=== PATIENT | female | born 1975 | race Caucasian/White ===

== ENCOUNTER 2022-06-21 12:36 | Emergency (ER) | payer OTHER, SELFPAY ==
[2022-06-21 12:41] VITALS: BP 142/89; PULSE 111; RESP 22; TEMP 36.6; O2SAT 98; BMI 48.9
--- NOTE | 2022-06-21 12:47 | DI.RAD.S_ITS ---
PROCEDURE: XR CHEST 2V INDICATIONS: URI TECHNIQUE: 2 views of the chest were acquired. COMPARISON: None. FINDINGS: Surgical changes and devices: None. Lungs and pleura: Question of minimal streaky opacity in the right lower lobe. No silhouetting. No pleural effusions or pneumothorax. Mediastinum: Mediastinal contours are normal. Heart size is normal. Bones and chest wall: No suspicious bony abnormalities. Soft tissues appear unremarkable. IMPRESSION: Questionable minimal streaky opacity in the right lower lobe. This could be seen in the setting of atelectasis or pneumonia Dictated by: Alphonse Jarvis M.D. on 06/21/2022 at 13:22 Approved by: Alphonse Jarvis M.D. on 06/21/2022 at 13:23
[2022-06-21 13:42] LABS: Influenza A - CEPHEID Flu A NEGATIVE (NEGATIVE); Influenza B - CEPHEID Flu B NEGATIVE (NEGATIVE); Respiratory Syncytial Virus Negative (Negative)
--- NOTE | 2022-06-21 13:49 | ED.GENADULT ---
HPI - General Adult General Chief complaint: Upper Respiratory Symptoms Stated complaint: fever 06/10 coughing, bladder, SOB Time Seen by Provider: 06/21/22 13:03 Source: patient Mode of arrival: Ambulatory History of Present Illness HPI narrative: 46-year-old female without prior underlying lung pathology who 18 days ago had COVID. Her last fever was approximately 10 days ago. She has persistent cough. It is productive. Body aches. Chest discomfort with the coughing. Shortness of breath. Has been trying [id number] medications. Is also having sinus congestion. Runny nose. Related Data Previous Rx's Medication Instructions Recorded benzonatate 100 mg capsule 100 mg PO TID PRN cough #21 caps 06/21/22 doxycycline hyclate 100 mg tablet 100 mg PO BID 5 days #10 tabs 06/21/22 Allergies Allergy/AdvReac Type Severity Reaction Status Date / Time erythromycin base Allergy Severe ANAPHYLAXIS Verified 06/21/22 12:46 [From ERYTHROCIN] Penicillins [PENICILLINS] Allergy Severe ANAPHYLAXIS Verified 06/21/22 12:46 Sulfa (Sulfonamide Allergy Severe ANAPHYLAXIS Verified 06/21/22 12:46 Antibiotics) [SULFA (SULFONAMIDE ANTIBIOTICS)] Review of Systems Constitutional Constitutional: Reports system reviewed and no additional complaints, except as documented ENT Ears, Nose, Mouth, and Throat: Reports system reviewed and no additional complaints, except as documented Respiratory Respiratory: Reports system reviewed and no additional complaints, except as documented Integumentary/Breasts Skin/Breast: Reports system reviewed and no additional complaints, except as documented Hematologic/Lymphatic On Anticoagulants: No Allergic/Immunologic Allergic/Immunologic: Reports system reviewed and no additional complaints, except as documented Patient History Medical History Abscess or cellulitis of thigh COVID-19 Left genital labial abscess Social History Smoking Status: Former smoker Smoking Status: Former smoker alcohol intake frequency: holidays/special occasions only Substance Use Type: marijuana Exam Initial Vital Signs Initial Vital Signs: Vital Signs Temperature 97.8 F 06/21/22 12:41 Pulse Rate 111 H 06/21/22 12:41 Respiratory Rate 22 06/21/22 12:41 Blood Pressure 142/89 H 06/21/22 12:41 Pulse Oximetry 98 06/21/22 12:41 Oxygen Delivery Method 06/21/22 12:41 Const General: cooperative, healthy appearing, comfortable, well developed and No ill appearing [facility] Head: normal to inspection and normocephalic Resp Effort & Inspection: normal respiratory effort Auscultation: clear to auscultation bilaterally Cardio Rate: regular rate Rhythm: regular rhythm Skin General: no rashes or lesions noted Neuro General: patient alert, patient awake, patient oriented x3 and moves all extremities Extrem General: normal to inspection and capillary refill normal Course Orders Ordered: ED Orders 06/21/22 12:47 XR chest 2V Stat 06/21/22 12:48 Covid-19 + FLU A/B + RSV - PCR Stat Vital Signs Vital signs: Vital Signs - 8 hr 06/21/22 12:41 Temperature 97.8 F Pulse Rate 111 H Respiratory Rate 22 Blood Pressure 142/89 H Pulse Oximetry 98 Oxygen Delivery Method Room Air Medical Decision Making Lab Data Lab results reviewed: Yes I reviewed the patient's lab results. Labs: Lab Results 06/21/22 Range/Units 12:48 SARS-CoV-2 (PCR) Positive H (Negative) Influenza A (RT-PCR) Flu a negative (NEGATIVE) Influenza B (RT-PCR) Flu b negative (NEGATIVE) RSV (PCR) Negative (Negative) Imaging Data Chest x-ray: Radiologist's Impression: [address] [address] XRay Report Signed Patient: Vandana Mckee MR#: [id number] : 1975 Acct:[id number] Age/Sex: 46 / F Date of Service: 06/21/22 Loc: ED Accession Number: [id number] ?? Procedure: XR chest 2V Ordering Provider: Esvin Aparicio D.O. PROCEDURE:? XR CHEST 2V ? INDICATIONS:? URI ? TECHNIQUE:? 2 views of the chest were acquired.? ? COMPARISON:? None. ? FINDINGS:? ? Surgical changes and devices:? None.? ? Lungs and pleura:? Question of minimal streaky opacity in the right lower lobe.? No silhouetting.? No pleural effusions or pneumothorax.? ? Mediastinum:? Mediastinal contours are normal.? Heart size is normal.? ? Bones and chest wall:? No suspicious bony abnormalities.? Soft tissues appear unremarkable.? ? IMPRESSION:? Questionable minimal streaky opacity in the right lower lobe.? This could be seen in the setting of atelectasis or pneumonia ? ? Dictated by: Alphonse Jarvis M.D. on 06/21/2022 at 13:22 ? ? Approved by: Alphonse Jarvis M.D. on 06/21/2022 at 13:23 MDM Narrative Medical decision making narrative: Patient is COVID positive. Chest x-ray shows possible right-sided pneumonia however she is a clear lung exam. Is not tachypneic but is having a productive cough. I discussed with her this chest x-ray finding and how this very well could just be COVID and not necessarily bacterial infection. She has had multiple issues with antibiotics in the past. Plan be is to send her home with medications to try to help with the cough. She was given a prescription for antibiotics but she will wait on filling this. She will try the antitussive medications and if her symptoms do not improve or worsen and she will start taking the antibiotics as directed. She expressed understanding and agreement with this plan. Discharge Plan Departure Patient Disposition: Home Clinical Impression: COVID-19, Cough Instructions: Cough, COVID-19 Activity Restrictions/Additional Instructions: I do recommend that he try [id number] cough and cold preparations such as Robitussin. Be sure that you are checking the ingredients of this so that you are not taking multiple medications that has the same ingredients. A prescription for a cough suppressant was sent to [facility] per your request. Keep the prescription for the antibiotics and if her symptoms do not improve or worsen over the next couple days then you can start this medication as directed. Prescriptions: New benzonatate 100 mg capsule 100 mg PO TID PRN (Reason: cough) Qty: 21 0RF doxycycline hyclate 100 mg tablet 100 mg PO BID 5 Days Qty: 10 0RF
[2022-06-21 14:03] LABS: COVID-19 CEPHEID 4-PLEX PCR POSITIVE (Negative)
[2022-06-21 14:36] VITALS: PULSE 99; RESP 18; O2SAT 100
== END 2022-06-21 14:36 | disposition home or self-care (01) ==
PROVIDERS: Emergency Provider Emergency Medicine
DX: U07.1 COVID-19 (principal); R05.9 Cough, unspecified
CPT/HCPCS: 0241U; 71046; 99283

== ENCOUNTER 2022-06-28 19:18 | Emergency (ER) | payer OTHER, SELFPAY ==
[2022-06-28] VITALS (7 sets, daily range): BP systolic 111–133; BP diastolic 59–76; PULSE 89–112; RESP 16–24; TEMP 36.9; O2SAT 96–99; BMI 49.5
--- NOTE | 2022-06-28 20:00 | DI.RAD.S_ITS ---
PROCEDURE: XR CHEST 2V INDICATIONS: cough TECHNIQUE: 2 views of the chest were acquired. COMPARISON: [facility], CR, XR CHEST 2V, 06/21/2022, 13:55. FINDINGS: Surgical changes and devices: None. Lungs and pleura: Lungs are clear. No pleural effusions or pneumothorax. Mediastinum: Mediastinal contours are normal. Heart size is normal. Bones and chest wall: No suspicious bony abnormalities. Soft tissues appear unremarkable. IMPRESSION: 1. No acute cardiopulmonary disease. Dictated by: Camilo Campos M.D. on 06/28/2022 at 20:59 Approved by: Camilo Campos M.D. on 06/28/2022 at 21:00
[2022-06-28 20:44] LABS: Influenza A - CEPHEID Flu A NEGATIVE (NEGATIVE); Influenza B - CEPHEID Flu B NEGATIVE (NEGATIVE); Respiratory Syncytial Virus Negative (Negative)
[2022-06-28 20:48] LABS: COVID-19 CEPHEID 4-PLEX PCR Negative (Negative)
--- NOTE | 2022-06-28 21:30 | ED.SOB ---
HPI - SOB/Dyspnea General Chief Complaint: Shortness of Breath/Dyspnea Stated Complaint: thinks pneumonia, cough Time Seen by Provider: 06/28/22 22:15 Source: patient Mode of arrival: Ambulatory Limitations: no limitations History of Present Illness HPI Narrative: 46-year-old female former smoker with history of recent COVID diagnosis and absent of any chronic medical problems presents with a chief complaint of ongoing shortness of breath and cough. She states that she feels these symptoms have been present for upwards of 1 month. She denies ongoing fever, runny nose or nasal congestion. She denies any sore throat but has had ongoing cough which is occasionally productive of greenish sputum. She denies any blood. She is short of breath with exertion but denies any orthopnea or conversational dyspnea. She denies nausea, vomiting or diarrhea. Related Data Previous Rx's Medication Instructions Recorded benzonatate 100 mg capsule 100 mg PO TID PRN cough #21 caps 06/21/22 doxycycline hyclate 100 mg tablet 100 mg PO BID #20 tabs 06/29/22 Allergies Allergy/AdvReac Type Severity Reaction Status Date / Time erythromycin base Allergy Severe ANAPHYLAXIS Verified 06/28/22 20:13 [From ERYTHROCIN] Penicillins [PENICILLINS] Allergy Severe ANAPHYLAXIS Verified 06/28/22 20:13 Sulfa (Sulfonamide Allergy Severe ANAPHYLAXIS Verified 06/28/22 20:13 Antibiotics) [SULFA (SULFONAMIDE ANTIBIOTICS)] Review of Systems Review of Systems Narrative: GENERAL: See HPI HEENT: See HPI RESPIRATORY: See HPI CARDIOVASCULAR: See HPI GASTROINTESTINAL: Denies nausea, vomiting, abdominal pain, diarrhea, constipation, melena. : Denies dysuria, frequency, incontinence, hematuria, urinary retention. MUSCULOSKELETAL: denies weakness, joint pain, or bony pain SKIN: Denies rash, skin lesions, or other NEUROLOGIC: Denies weakness, headache, numbness, change in speech, confusion, seizures, incoordination. PSYCHIATRIC: No concerning psychosocial issues. 12 point review of systems is negative except for those stated above Patient History Medical History Abscess or cellulitis of thigh COVID-19 Left genital labial abscess Social History Smoking Status: Former smoker Smoking Status: Former smoker alcohol intake frequency: holidays/special occasions only Substance Use Type: marijuana Exam Narrative Exam Narrative: GENERAL: [46] year old patient appears stated age. Well-developed patient, in mild distress. HEAD: Atraumatic. Normocephalic. EYES: Pupils equal round and reactive. Extraocular motions intact. No scleral icterus. No injection or drainage. ENT: Nose without bleeding, purulent drainage. Throat without erythema, tonsillar hypertrophy or exudate. Airway patent. NECK: Trachea midline. Non tender CARDIOVASCULAR: Regular rate and rhythm without murmurs, gallops, or rubs. RESPIRATORY: Clear to auscultation. Breath sounds equal bilaterally. No wheezes, rales, or rhonchi. Deep breath seems to elicit cough GASTROINTESTINAL: Abdomen soft, non-tender, nondistended. EXTREMITIES: No edema or joint tenderness. BACK: Nontender without deformity or crepitance. No flank tenderness. NEURO: AOx3. SKIN: No rash or erythema of visible areas Initial Vital Signs Initial Vital Signs: Vital Signs Temperature 98.5 F 06/28/22 19:51 Pulse Rate 112 H 06/28/22 19:51 Respiratory Rate 24 06/28/22 19:51 Blood Pressure 133/76 06/28/22 19:51 Pulse Oximetry 99 06/28/22 19:51 Oxygen Delivery Method 06/28/22 19:51 Course Orders Ordered: Discontinued Medications Albuterol (Albuterol Hfa Prepack) 1 box MISC SEEINSTR ONE Stop: 06/29/22 02:41 Last Admin: 06/29/22 02:50 Dose: 1 box Documented By: MAGGY Doxycycline Hyclate (Doxycycline Hyclate 100 Mg Tablet) 100 mg PO NOW ONE Stop: 06/29/22 02:40 Last Admin: 06/29/22 02:52 Dose: 100 mg Documented By: LISHA Sodium Chloride (Normal Saline 0.9%) 1,000 mls @ 1,000 mls/hr IV BOLUS ONE Stop: 06/28/22 22:18 Last Infusion: 06/29/22 00:11 Dose: 0 mls/hr Documented By: Admin: 06/28/22 21:39 Dose: 1,000 mls/hr Documented By: TERRANCE Vital Signs Vital signs: Vital Signs - 8 hr 06/28/22 19:51 06/28/22 21:49 06/28/22 22:00 Temperature 98.5 F Pulse Rate 112 H 93 H Respiratory Rate 24 Blood Pressure 133/76 130/75 Pulse Oximetry 99 97 Oxygen Delivery Method Room Air 06/28/22 22:00 06/28/22 22:30 06/28/22 22:30 Temperature Pulse Rate 97 H 90 Respiratory Rate 16 Blood Pressure 115/59 L Pulse Oximetry 96 97 Oxygen Delivery Method Room Air 06/28/22 23:00 06/28/22 23:00 06/28/22 23:32 Temperature Pulse Rate 89 Respiratory Rate Blood Pressure 119/71 Pulse Oximetry 98 98 Oxygen Delivery Method 06/28/22 23:33 06/28/22 23:33 06/29/22 00:00 Temperature Pulse Rate 93 H Respiratory Rate Blood Pressure 111/65 107/59 L Pulse Oximetry 97 Oxygen Delivery Method 06/29/22 00:00 06/29/22 00:30 06/29/22 00:30 Temperature Pulse Rate 93 H 94 H Respiratory Rate Blood Pressure 108/57 L Pulse Oximetry 97 97 Oxygen Delivery Method 06/29/22 01:00 06/29/22 01:00 06/29/22 01:39 Temperature Pulse Rate 91 H 103 H Respiratory Rate Blood Pressure 107/59 L Pulse Oximetry 96 97 Oxygen Delivery Method 06/29/22 02:00 Temperature Pulse Rate 87 Respiratory Rate Blood Pressure Pulse Oximetry 95 Oxygen Delivery Method MDM - SOB/Dyspnea Lab Data Result diagrams: 06/28/22 21:30 06/28/22 21:30 Labs: Lab Results 06/28/22 06/28/22 06/28/22 Range/Units 20:00 21:30 21:30 WBC 9.7 (4.5-11.0) X10^3/uL RBC 4.54 (4.0-5.2) X10^6/uL Hgb 10.2 L (12.0-16.0) g/dL Hct 32.3 L (36-46) % MCV 71.2 L (80-100) fL MCH 22.5 L (26-34) PG MCHC 31.6 (30-36) % RDW 18.1 H (11.6-14.8) % Plt Count 309 (150-400) X10^3/uL Neut % (Auto) 60.0 (50-75) % Lymph % (Auto) 27.2 (25-40) % [place] % (Auto) 6.4 (3-14) % Eos % (Auto) 5.5 H (2-4) % Baso % (Auto) 0.9 (0-2) % Neut # (Auto) 5800 (8301-8071) /uL Lymph # (Auto) 2600 (7968-7718) /uL [place] # (Auto) 600 (0-900) /uL Eos # (Auto) 500 H (0-450) /uL Baso # (Auto) 100 (0-100) /uL D-Dimer (<500) ng/ml Sodium (137-145) mmol/L Potassium (3.4-5.1) mmol/L Chloride (98-107) mmol/L Carbon Dioxide (22-32) mmol/L BUN (7-17) mg/dL Creatinine (0.52-1.04) mg/dL Estimated GFR (>60) mL/min BUN/Creatinine Ratio (6-22) Glucose (70-100) mg/dL Lactate (0.7-2.1) mmol/L Calcium (8.4-10.2) mg/dL Total Bilirubin (0.2-1.3) mg/dL AST (14-36) IU/L ALT (<35) IU/L Alkaline Phosphatase (38-126) U/L Total Creatine Kinase (30-135) U/L CK-MB (CK-2) (<2.37) ng/mL CK-MB (CK-2) Rel Index (1.5-5.0) % Troponin I (0.01-0.034) ng/mL NT-Pro-B Natriuret Pep (<125) pg/mL Total Protein (6.3-8.2) g/dL Albumin (3.5-5.0) g/dL Globulin (1.7-4.1) g/dL Albumin/Globulin Ratio (1.0-2.8) Procalcitonin 0.08 (<0.5) ng/mL SARS-CoV-2 (PCR) Negative (Negative) Influenza A (RT-PCR) Flu a negative (NEGATIVE) Influenza B (RT-PCR) Flu b negative (NEGATIVE) RSV (PCR) Negative (Negative) 12/05/22 12/05/22 12/05/22 Range/Units 21:30 21:30 21:30 WBC (4.5-11.0) X10^3/uL RBC (4.0-5.2) X10^6/uL Hgb (12.0-16.0) g/dL Hct (36-46) % MCV (80-100) fL MCH (26-34) PG MCHC (30-36) % RDW (11.6-14.8) % Plt Count (150-400) X10^3/uL Neut % (Auto) (50-75) % Lymph % (Auto) (25-40) % [place] % (Auto) (3-14) % Eos % (Auto) (2-4) % Baso % (Auto) (0-2) % Neut # (Auto) (1750-9162) /uL Lymph # (Auto) (4059-4881) /uL [place] # (Auto) (0-900) /uL Eos # (Auto) (0-450) /uL Baso # (Auto) (0-100) /uL D-Dimer 658 H (<500) ng/ml Sodium 139 (137-145) mmol/L Potassium 3.9 (3.4-5.1) mmol/L Chloride 104 (98-107) mmol/L Carbon Dioxide 27 (22-32) mmol/L BUN 14 (7-17) mg/dL Creatinine 0.82 (0.52-1.04) mg/dL Estimated GFR > 60 (>60) mL/min BUN/Creatinine Ratio 17.1 (6-22) Glucose 100 (70-100) mg/dL Lactate 1.1 (0.7-2.1) mmol/L Calcium 8.6 (8.4-10.2) mg/dL Total Bilirubin 0.3 (0.2-1.3) mg/dL AST 24 (14-36) IU/L ALT 18 (<35) IU/L Alkaline Phosphatase 88 (38-126) U/L Total Creatine Kinase 252 H (30-135) U/L CK-MB (CK-2) 0.60 (<2.37) ng/mL CK-MB (CK-2) Rel Index 0.2 L (1.5-5.0) % Troponin I < 0.012 (0.01-0.034) ng/mL NT-Pro-B Natriuret Pep 81 (<125) pg/mL Total Protein 7.6 (6.3-8.2) g/dL Albumin 4.0 (3.5-5.0) g/dL Globulin 3.6 (1.7-4.1) g/dL Albumin/Globulin Ratio 1.1 (1.0-2.8) Procalcitonin (<0.5) ng/mL SARS-CoV-2 (PCR) (Negative) Influenza A (RT-PCR) (NEGATIVE) Influenza B (RT-PCR) (NEGATIVE) RSV (PCR) (Negative) Urine Dip Bedside Urine Glucose Negative Bedside Urine Bilirubin - Negative Bedside Urine Ketone - Negative Urine Specific [place] 1.030 Bedside Urine Occult Blood - Negative Bedside Urine pH 6.0 Bedside Urine Protein - Negative Bedside Urine Urobilinogen - Negative Bedside Urine Nitrite - Negative Bedside Urine Leukocytes - Negative Esterase Imaging Data CT scan - chest: Radiologist's Impression: Close Chest CTA (Signed) Camilo Campos - 06/29/22 Chest X-Ray (Signed) Camilo Campos - 06/28/22 Launch?[place] [address] CT Scan Report Signed Patient: Vandana Mckee MR#: [id number] : 1975 Acct:[id number] Age/Sex: 46 / F Date of Service: 06/29/22 Loc: Accession Number: [id number] ?? Procedure: CT angio chest PE protocol Ordering Provider: Jamarcus Lipscomb D.O. PROCEDURE:? CT ANGIO CHEST PE PROTOCOL ? INDICATIONS:? cough, SOB, elevated Dimer ? TECHNIQUE:? After the administration of intravenous contrast, 2 mm thick sections acquired from the pulmonary apices to the posterior costophrenic angles.? 3-dimensional maximum intensity projection (MIP) coronal and sagittal reformats were then acquired through the thorax.? For radiation dose reduction, the following was used:? automated exposure control, adjustment of mA and/or kV according to patient size.? ? COMPARISON:? [facility], CR, XR CHEST 2V, 06/28/2022, 20:13. ? FINDINGS:? Image quality:? Excellent.? ? Pulmonary arteries:? Pulmonary arteries are normal in size, and demonstrate no intraluminal filling defects to suggest central pulmonary embolism.? ? Lower Neck: No lymphadenopathy by size criteria. Thyroid:? Visualized thyroid demonstrates no discrete nodules. Axillae: No lymphadenopathy by size criteria. Chest Wall:? Unremarkable.? Bones: Visualized osseous structures demonstrate no suspicious lesions. ? Lungs and Airways:? No acute consolidation.? There are small clustered ground-glass pulmonary nodules within the left upper lobe.? The trachea and central airways are patent. Pleura: No pneumothorax or pleural effusions.? ? Heart: Heart size is normal.? No pericardial effusion. Thoracic Vessels: The thoracic aorta is normal in size.? Mediastinum and Savi: No lymphadenopathy by size criteria. Esophagus: No wall thickening.? There is a small hiatal hernia. ? Abdomen:? Visualized upper abdominal solid organs appear normal in the early arterial phase of enhancement.? ? IMPRESSION:? ? 1. No evidence of pulmonary embolism. ? 2. Small clustered ground-glass nodules in the left upper lobe consistent with a mild infectious or inflammatory process.? ? ? Dictated by: Camilo Campos M.D. on 06/29/2022 at 2:07 ? ? Approved by: Camilo Campos M.D. on 06/29/2022 at 2:27 ? MDM Narrative Medical decision making narrative: 46-year-old female former smoker with history of recent COVID diagnosis and absent of any chronic medical problems presents with a chief complaint of ongoing shortness of breath and cough Multiple etiologies for patient's symptoms considered including: [Bacterial pneumonia, COVID, Flu, PE] Given persistence of dry cough, occasional hemoptysis and recent COVID D-dimer was ordered which was above the cutoff and therefore CTA for pulmonary embolism ordered which is thankfully negative, but suggestive of bacterial pneumonia Patient's symptoms improved over duration of stay with above-stated therapies. Findings and discharge diagnosis discussed with patient/family followed by verbalization of understanding Return precautions discussed with patient/family whom verbalize understanding. Discharge Plan Departure Patient Disposition: Home Clinical Impression: Pneumonia Instructions: DI for Pneumonia -- Adult Activity Restrictions/Additional Instructions: *You have been diagnosed with [left upper lobe pneumonia. As we discussed there is no evidence of COVID, flu or a blood clot in your lung.] *What to do: *Please continue to take your regular medications as directed. [x ] New medication prescriptions sent to your pharmacy: [[facility] ] [ ] New medication written as a paper prescription [ ] No new medications given *Please follow up with your primary care provider in 2-3 days, call for an appointment. Let them know you were seen in the Emergency Department and that we ask that you be seen in follow up. We will electronically transmit a record of today's note if your PCP is in our system *If you do not have a primary care provider please contact the [facility] Resource line at [phone]. They will ask some questions about your medical history and help get you set up with a doctor in the community. *Return to Emergency Department if you should have any new, worsening or concerning symptoms, such as [fever greater than 101 F, shaking chills, worsening pain, persistent vomiting or other bothersome symptoms] Prescriptions: New doxycycline hyclate 100 mg tablet 100 mg PO BID Qty: 20 0RF No Action benzonatate 100 mg capsule 100 mg PO TID PRN (Reason: cough) Qty: 21 0RF Referrals: [facility] [Primary Care Provider] - Visit Report Forms: Patient Portal/API
[2022-06-28] MEDS: SODIUM CHLORIDE 0.9% 1,000 ML 1000 ML IV (21:39)
[2022-06-28 21:45] LABS: Add Manual Diff / Slide Review NO; Basophils Absolute Auto 100 /uL (0-100); Basophils Percent Auto 0.9 % (0-2); Eosinophils Absolute Auto 500 /uL (0-450); Eosinophils Percent Auto 5.5 % (2-4); Hematocrit 32.3 % (36-46); Hemoglobin 10.2 g/dL (12.0-16.0); Lymphocytes Absolute Auto 2600 /uL (1100-4500); Lymphocytes Percent Auto 27.2 % (25-40); Mean Corpuscular HGB Conc 31.6 % (30-36); Mean Corpuscular Hemoglobin 22.5 PG (26-34); Mean Corpuscular Volume 71.2 fL (80-100); Monocytes Absolute Auto 600 /uL (0-900); Monocytes Percent Auto 6.4 % (3-14); Neutrophils Absolute Auto 5800 /uL (1500-7000); Platelet Count 309 X10^3/uL (150-400); Red Blood Cell Count 4.54 X10^6/uL (4.0-5.2); Red Cell Distribution Width 18.1 % (11.6-14.8); White Blood Cell Count 9.7 X10^3/uL (4.5-11.0)
[2022-06-28 21:52] LABS: Lactate (Lactic Acid) 1.1 mmol/L (0.7-2.1)
[2022-06-28 21:53] LABS: Alanine Aminotransferase 18 IU/L (<35); Albumin Globulin Ratio 1.1 (1.0-2.8); Alkaline Phosphatase 88 U/L (38-126); Aspartate Aminotransferase 24 IU/L (14-36); BUN Creatinine Ratio 17.1 (6-22); Bilirubin Total 0.3 mg/dL (0.2-1.3); Blood Urea Nitrogen 14 mg/dL (7-17); Calcium 8.6 mg/dL (8.4-10.2); Carbon Dioxide 27 mmol/L (22-32); Chloride 104 mmol/L (98-107); Creatine Kinase 252 U/L (30-135); Estimated Glomerular Filt Rate > 60 mL/min (>60); Globulin 3.6 g/dL (1.7-4.1); Glucose 100 mg/dL (70-100); HEMOLYSIS < 15 (0-50); Potassium 3.9 mmol/L (3.4-5.1); Sodium 139 mmol/L (137-145); Total Protein 7.6 g/dL (6.3-8.2)
[2022-06-28 22:05] LABS: NT-proBNP (BNP-Adult 18+) 81 pg/mL (<125); Troponin I < 0.012 ng/mL (0.01-0.034)
[2022-06-28 22:08] LABS: CKMB % Relative Index 0.2 % (1.5-5.0)
[2022-06-28 22:21] LABS: Procalcitonin 0.08 ng/mL (<0.5)
[2022-06-28 23:31] LABS: D Dimer 658 ng/ml (<500)
[2022-06-29] VITALS (7 sets, daily range): BP systolic 107–119; BP diastolic 57–82; PULSE 84–103; O2SAT 94–97
--- NOTE | 2022-06-29 01:15 | DI.CT.S_ITS ---
PROCEDURE: CT ANGIO CHEST PE PROTOCOL INDICATIONS: cough, SOB, elevated Dimer TECHNIQUE: After the administration of intravenous contrast, 2 mm thick sections acquired from the pulmonary apices to the posterior costophrenic angles. 3-dimensional maximum intensity projection (MIP) coronal and sagittal reformats were then acquired through the thorax. For radiation dose reduction, the following was used: automated exposure control, adjustment of mA and/or kV according to patient size. COMPARISON: [facility], CR, XR CHEST 2V, 06/28/2022, 20:13. FINDINGS: Image quality: Excellent. Pulmonary arteries: Pulmonary arteries are normal in size, and demonstrate no intraluminal filling defects to suggest central pulmonary embolism. Lower Neck: No lymphadenopathy by size criteria. Thyroid: Visualized thyroid demonstrates no discrete nodules. Axillae: No lymphadenopathy by size criteria. Chest Wall: Unremarkable. Bones: Visualized osseous structures demonstrate no suspicious lesions. Lungs and Airways: No acute consolidation. There are small clustered ground-glass pulmonary nodules within the left upper lobe. The trachea and central airways are patent. Pleura: No pneumothorax or pleural effusions. Heart: Heart size is normal. No pericardial effusion. Thoracic Vessels: The thoracic aorta is normal in size. Mediastinum and Savi: No lymphadenopathy by size criteria. Esophagus: No wall thickening. There is a small hiatal hernia. Abdomen: Visualized upper abdominal solid organs appear normal in the early arterial phase of enhancement. IMPRESSION: 1. No evidence of pulmonary embolism. 2. Small clustered ground-glass nodules in the left upper lobe consistent with a mild infectious or inflammatory process. Dictated by: Camilo Campos M.D. on 06/29/2022 at 2:07 Approved by: Camilo Campos M.D. on 06/29/2022 at 2:27
[2022-06-29] MEDS: ALBUTEROL HFA PREPACK 1 BOX MISC (02:50)
[2022-06-29] MEDS: DOXYCYCLINE HYCLATE 100 MG TABLET PO (02:52)
== END 2022-06-29 02:58 | disposition home or self-care (01) ==
PROVIDERS: Emergency Provider Emergency Medicine
DX: J18.9 Pneumonia, unspecified organism (principal); Z20.822 Contact with and (suspected) exposure to COVID-19; R79.89 Other specified abnormal findings of blood chemistry
CPT/HCPCS: 0241U; 36415; 71046; 71275; 80053; 81003; 82550; 82553; 83605; 83880; 84145; 84484; 85025; 85379; 87040; 93005; 93010; 99284; 99285; Q9967

== ENCOUNTER 2023-06-10 18:29 | Emergency (ER) | payer OTHER, SELFPAY ==
[2023-06-10 18:31] VITALS: PULSE 88; RESP 18; TEMP 36.4; O2SAT 100; BMI 46.3
--- NOTE | 2023-06-10 18:35 | DI.RAD.S_ITS ---
PROCEDURE: XR CHEST 1V INDICATIONS: chest pain TECHNIQUE: One view of the chest was acquired. COMPARISON: [facility], CR, XR CHEST 2V, 06/28/2022, 20:13. FINDINGS: Surgical changes and devices: None. Lungs and pleura: Lungs are clear. No pleural effusions or pneumothorax. Mediastinum: Mediastinal contours appear normal. Heart size is normal. Bones and chest wall: No suspicious bony lesions. Overlying soft tissues appear unremarkable. IMPRESSION: Portable chest within normal limits for age. Dictated by: Cathy Selby M.D. on 06/10/2023 at 19:25 Approved by: Cathy Selby M.D. on 06/10/2023 at 19:25
[2023-06-10] MEDS: ASPIRIN 81 MG CHEW TAB 324 MG PO (18:37)
--- NOTE | 2023-06-10 18:44 | PC.NURSE ---
unable to float IV in. Able to get blood removed IV cath
[2023-06-10 18:57] LABS: Add Manual Diff / Slide Review NO; Basophils Absolute Auto 100 /uL (0-100); Basophils Percent Auto 0.9 % (0-2); Eosinophils Absolute Auto 200 /uL (0-450); Eosinophils Percent Auto 2.2 % (2-4); Hematocrit 37.3 % (36-46); Hemoglobin 12.4 g/dL (12.0-16.0); Lymphocytes Absolute Auto 2000 /uL (1100-4500); Lymphocytes Percent Auto 23.5 % (25-40); Mean Corpuscular HGB Conc 33.2 % (30-36); Mean Corpuscular Volume 78.2 fL (80-100); Monocytes Absolute Auto 400 /uL (0-900); Monocytes Percent Auto 5.3 % (3-14); Neutrophils Absolute Auto 5800 /uL (1500-7000); Neutrophils Percent Auto 68.1 % (50-75); Platelet Count 264 X10^3/uL (150-400); Red Blood Cell Count 4.77 X10^6/uL (4.0-5.2); Red Cell Distribution Width 20.6 % (11.6-14.8); White Blood Cell Count 8.5 X10^3/uL (4.5-11.0)
[2023-06-10 18:59] LABS: PTT Partial Thromboplastin Tim 26 SECONDS (26-36)
[2023-06-10 19:00] LABS: Alanine Aminotransferase 22 IU/L (<35); Albumin 3.9 g/dL (3.5-5.0); Albumin Globulin Ratio 1.1 (1.0-2.8); Alkaline Phosphatase 72 U/L (38-126); Aspartate Aminotransferase 29 IU/L (14-36); Bilirubin Total 0.6 mg/dL (0.2-1.3); Blood Urea Nitrogen 14 mg/dL (7-17); Calcium 9.1 mg/dL (8.4-10.2); Carbon Dioxide 27 mmol/L (22-32); Chloride 103 mmol/L (98-107); Creatine Kinase 94 U/L (30-135); Estimated Glomerular Filt Rate > 60 mL/min (>60); Globulin 3.6 g/dL (1.7-4.1); Glucose 108 mg/dL (70-100); HEMOLYSIS 32 (0-50); Lipase 60 U/L (23-300); Magnesium 2.1 mg/dL (1.6-2.3); Potassium 3.9 mmol/L (3.4-5.1); Sodium 137 mmol/L (137-145); Total Protein 7.5 g/dL (6.3-8.2)
[2023-06-10 19:11] LABS: Troponin I < 0.012 ng/mL (0.01-0.034)
[2023-06-10 19:25] LABS: Anisocytosis 1+
--- NOTE | 2023-06-10 19:58 | ED_ITS ---
HPI - Chest Pain General Chief Complaint: Chest Pain Stated Complaint: chest pains all day Time Seen by Provider: 06/10/23 19:58 History of Present Illness HPI narrative: Patient comes to the ED tonight with chest pain most of the day today. Pain is in the left upper chest radiating to the shoulder a bit she is some numbness and tingling at times. It is definitely worse with movement. No nausea vomiting or diarrhea. No fever no cough no sweats or breathlessness or nausea associated with this pain. No history of coronary disease. She does have obesity. She does not smoke cigarettes. No early family history of coronary disease. She does not take cholesterol medication. She does have underlying asthma. No history of thromboembolic disease. No estrogen therapy. No hemoptysis. No cancer history. No exogenous estrogens. Related Data Previous Rx's Medication Instructions Recorded benzonatate 100 mg capsule 100 mg PO TID PRN cough #21 caps 06/21/22 doxycycline hyclate 100 mg tablet 100 mg PO BID #20 tabs 06/29/22 Allergies Allergy/AdvReac Type Severity Reaction Status Date / Time erythromycin base Allergy Severe ANAPHYLAXIS Verified 06/10/23 18:35 [From ERYTHROCIN] Penicillins [PENICILLINS] Allergy Severe ANAPHYLAXIS Verified 06/10/23 18:35 Sulfa (Sulfonamide Allergy Severe ANAPHYLAXIS Verified 06/10/23 18:35 Antibiotics) [SULFA (SULFONAMIDE ANTIBIOTICS)] Patient History Medical History Abscess or cellulitis of thigh COVID-19 Left genital labial abscess Social History Smoking Status: Former smoker Smoking Status: Former smoker alcohol intake frequency: holidays/special occasions only Substance Use Type: marijuana Exam Narrative Exam Narrative: GENERAL: Alert, cooperative and in no distress. HEAD: Atraumatic. Normocephalic. EYES: Sclera are clear without icterus. Extraocular movements are full. ENT: No rhinorrhea. Oropharynx is moist. Mouth exam is benign. NECK: Supple. Full range of motion. CARDIOVASCULAR: Normal rate and rhythm without murmur gallop or rub. Clear-cut reproducible left upper chest pain to palpation RESPIRATORY: Clear to auscultation. Breath sounds equal bilaterally. No wheezes, rales, or rhonchi. GASTROINTESTINAL: Abdomen soft, non-tender, nondistended. EXTREMITIES: No edema, full range of motion. No obvious trauma. BACK: Normal inspection, no CVA tenderness. NEURO: Nonfocal examination, normal speech, normal gait. SKIN: No rash or erythema of visible areas PSYCH: Normally oriented. Normal range of affect. Appropriate behavior Initial Vital Signs Initial Vital Signs: Vital Signs Temperature 97.6 F 06/10/23 18:31 Pulse Rate 88 06/10/23 18:31 Respiratory Rate 18 06/10/23 18:31 Pulse Oximetry 100 06/10/23 18:31 Oxygen Delivery Method Room Air 06/10/23 18:31 Scores HEART Score Heart Score history: Slightly Suspicious Heart Score EKG: Normal Heart Score Age: 45-64 years old Heart Score risk factors: 1-2 risk factors Heart Score troponin: < or = to normal limit Heart Score Total: 2 PERC Score Age greater than or equal to 50 years: No Heart rate greater than or equal to 100 bpm: No Room Air O2 Sat less than 95%: No Unilateral leg swelling: No Recent trauma or surgery: No Hemoptysis: No Prior PE or DVT: No Hormone Use: No Total PERC Score: 0 Course Orders Ordered: ED Orders 06/10/23 18:35 XR chest 1V Stat 06/10/23 18:42 Complete Blood Count AUTO DIFF Stat Comprehensive Metabolic Panel Stat Lipase Stat Magnesium Stat PTT Partial Thromboplastin Izaiah Stat Prothrombin Time INR Stat Troponin & CK Cardiac Panel Stat 06/10/23 18:46 EKG-12 Lead Stat Discontinued Medications Aspirin (Aspirin 81 Mg Chew Tab) 324 mg PO NOW ONE Stop: 06/10/23 18:36 Last Admin: 06/10/23 18:37 Dose: 324 mg Documented By: JOSE Vital Signs Vital signs: Vital Signs - 8 hr 06/10/23 18:31 Temperature 97.6 F Pulse Rate 88 Respiratory Rate 18 Pulse Oximetry 100 Oxygen Delivery Method Room Air MDM - Chest Pain Lab Data 06/10/23 18:42 06/10/23 18:42 Labs: Lab Results 06/10/23 Range/Units 18:42 WBC 8.5 (4.5-11.0) X10^3/uL RBC 4.77 (4.0-5.2) X10^6/uL Hgb 12.4 (12.0-16.0) g/dL Hct 37.3 (36-46) % MCV 78.2 L (80-100) fL MCH 26.0 (26-34) PG MCHC 33.2 (30-36) % RDW 20.6 H (11.6-14.8) % Plt Count 264 (150-400) X10^3/uL Neut % (Auto) 68.1 (50-75) % Lymph % (Auto) 23.5 L (25-40) % [place] % (Auto) 5.3 (3-14) % Eos % (Auto) 2.2 (2-4) % Baso % (Auto) 0.9 (0-2) % Neut # (Auto) 5800 (6305-7427) /uL Lymph # (Auto) 2000 (1690-2478) /uL [place] # (Auto) 400 (0-900) /uL Eos # (Auto) 200 (0-450) /uL Baso # (Auto) 100 (0-100) /uL RBC Morphology See below Anisocytosis 1+ H PT 12.0 (10.1-12.7) SECONDS INR 1.0 (0.9-1.3) APTT 26 (26-36) SECONDS Sodium 137 (137-145) mmol/L Potassium 3.9 (3.4-5.1) mmol/L Chloride 103 (98-107) mmol/L Carbon Dioxide 27 (22-32) mmol/L BUN 14 (7-17) mg/dL Creatinine 0.70 (0.52-1.04) mg/dL Estimated GFR > 60 (>60) mL/min BUN/Creatinine Ratio 20.0 (6-22) Glucose 108 H (70-100) mg/dL Calcium 9.1 (8.4-10.2) mg/dL Magnesium 2.1 (1.6-2.3) mg/dL Total Bilirubin 0.6 (0.2-1.3) mg/dL AST 29 (14-36) IU/L ALT 22 (<35) IU/L Alkaline Phosphatase 72 (38-126) U/L Total Creatine Kinase 94 (30-135) U/L Troponin I < 0.012 (0.01-0.034) ng/mL Total Protein 7.5 (6.3-8.2) g/dL Albumin 3.9 (3.5-5.0) g/dL Globulin 3.6 (1.7-4.1) g/dL Albumin/Globulin Ratio 1.1 (1.0-2.8) Lipase 60 (23-300) U/L ECG Data Interpretation: ECG obtained at 6:46 p.m. shows sinus rhythm at 79 beats per minute. QTC is 467. This ECG is normal. MDM Narrative Medical decision making narrative: Heart score of 2. Perc negative. ECG normal. Reproducible musculoskeletal pain. No further workup indicated at this time. Outpatient follow-up with symptomatic therapies. Discharge Plan Departure Patient Disposition: Home Clinical Impression: Chest pain Instructions: DI for Chest Pain Activity Restrictions/Additional Instructions: No immediately dangerous cause for your chest pain is identified. I recommend outpatient follow-up with your primary care doctor to discuss further investigation is warranted. Follow-up right away for fainting, severe uncontrolled pain especially if it is associated with breathlessness. High fever or other severe symptoms. Your chest pain may end up being something of consequence and serious but no evidence of this at this time. I recommend outpatient follow-up to investigate this more thoroughly. In the meantime Tylenol 1000 mg every 6 hours combined with an NSAID regularly should help with the pain to some degree. Ice packs or heat packs are safe to use as well. Prescriptions: No Action benzonatate 100 mg capsule 100 mg PO TID PRN (Reason: cough) Qty: 21 0RF doxycycline hyclate 100 mg tablet 100 mg PO BID Qty: 20 0RF Referrals: [facility] [Primary Care Provider] - Stand Alone Forms: Patient Portal/API
[2023-06-10 20:28] VITALS: BP 136/82; PULSE 71; RESP 16; O2SAT 99
== END 2023-06-10 20:29 | disposition home or self-care (01) ==
PROVIDERS: Emergency Provider Family Medicine Addiction Medicine
DX: R07.9 Chest pain, unspecified (principal)
CPT/HCPCS: 36415; 71045; 80053; 82550; 83690; 83735; 84484; 85025; 85610; 85730; 93005; 93010; 99283; 99284

== ENCOUNTER → 2024-03-15 09:38 | Outpatient (CLI) | payer OTHER, SELFPAY ==
--- NOTE | 2024-03-15 10:10 | EKG_ITS ---
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
[2024-03-15 11:01] LABS: Add Manual Diff / Slide Review NO; Basophils Absolute Auto 0 /uL (0-100); Basophils Percent Auto 0.5 % (0-2); Eosinophils Absolute Auto 100 /uL (0-450); Eosinophils Percent Auto 1.4 % (2-4); Hematocrit 36.8 % (36-46); Hemoglobin 12.1 g/dL (12.0-16.0); Lymphocytes Absolute Auto 1800 /uL (1100-4500); Mean Corpuscular Volume 81.9 fL (80-100); Monocytes Absolute Auto 600 /uL (0-900); Monocytes Percent Auto 6.6 % (3-14); Neutrophils Absolute Auto 6200 /uL (1500-7000); Neutrophils Percent Auto 70.5 % (50-75); Platelet Count 299 X10^3/uL (150-400); Red Cell Distribution Width 14.7 % (11.6-14.8); White Blood Cell Count 8.7 X10^3/uL (4.5-11.0)
[2024-03-15 11:50] LABS: Albumin 4.1 g/dL (3.5-5.0); BUN Creatinine Ratio 13.3 (6-22); Blood Urea Nitrogen 11 mg/dL (7-17); Calcium 9.1 mg/dL (8.4-10.2); Carbon Dioxide 27 mmol/L (22-32); Chloride 102 mmol/L (98-107); Estimated Glomerular Filt Rate > 60 mL/min (>60); Glucose 94 mg/dL (70-100); HEMOLYSIS < 15 (0-50); Potassium 4.2 mmol/L (3.4-5.1); Sodium 138 mmol/L (137-145)
[2024-03-15 11:58] LABS: Prealbumin 23.5 mg/dL (17.6-36.0)
[2024-03-15 12:05] LABS: Hemoglobin A1C% w Est Avg Glu 4.9 % (4.0-6.0)
[2024-03-15 14:44] LABS: Vitamin D 25 Hydroxy (D3) 30.4 ng/mL (30.0-100.0)
== END ==
PROVIDERS: Referring Provider Orthopaedic Surgery Adult Reconstructive Orthopaedic Surgery; Visit Provider Orthopaedic Surgery Adult Reconstructive Orthopaedic Surgery
DX: Z01.818 Encounter for other preprocedural examination (principal); R77.0 Abnormality of albumin; E55.9 Vitamin D deficiency, unspecified; Z01.812 Encounter for preprocedural laboratory examination; R73.9 Hyperglycemia, unspecified
CPT/HCPCS: 36415; 80048; 82040; 82306; 83036; 84134; 85025; 93005

== ENCOUNTER 2024-06-15 08:44 | Day surgery (SDC) | payer OTHER, SELFPAY ==
[2024-06-05 09:36] VITALS: BMI 47.2
[2024-06-15] VITALS (10 sets, daily range): BP systolic 105–129; BP diastolic 42–77; PULSE 80–98; RESP 11–22; TEMP 35.8–36.7; O2SAT 98–100; BMI 46.3
[2024-06-15] MEDS: LACTATED RINGERS 1,000 ML 42 ML IV ×2 (09:43→12:31)
[2024-06-15] MEDS: ACETAMINOPHEN 325 MG TABLET 975 MG PO (09:43)
[2024-06-15] MEDS: MELOXICAM 7.5 MG TABLET 15 MG PO (09:43)
--- NOTE | 2024-06-15 10:04 | PM.PREOP ---
Pre-operative Note Interval Note History & Physical reviewed/Exam performed by Physician: Yes Changes to H&P: No
[2024-06-15] MEDS: CEFAZOLIN VIAL 3 GM in SODIUM CHLORIDE 0.9% 100 ML IV ×2 (11:03→18:17)
[2024-06-15] MEDS: TRANEXAMIC ACID 1,000 MG VIAL 2000 MG INJ ×2 (11:20→12:30)
--- NOTE | 2024-06-15 11:34 | SUR.OPER ---
Supine on padded OR bed. Pillow under head, arms secured on padded armboards <90 degree abduction. Safety belt across torso. Non-operative leg secured with tape over blanket over lower leg. Operative leg secured in DeMayo/Axel/Nathe positioner. Foam padded brace at thigh of operative leg.
[2024-06-15] MEDS: ROPIVACAINE/EPI/CLONIDINE/KET 50 ML SYRINGE INJ (11:46)
--- NOTE | 2024-06-15 12:37 | P.OP_ITS ---
Operative Date/Time/Diagnoses Date of procedure: 06/15/24 Pre-op diagnosis: Right knee osteoarthritis Post-op diagnosis: same Procedure & Clinicians Procedure: Right total knee arthroplasty Same procedure as scheduled: Yes Surgeon: Rylan Pittman Caramel Candy Maker: Anna Lyman Anesthesia Type: Spinal, Sedation, Peripheral nerve block and Local Operative Notes Estimated Blood Loss (mL): 150 Procedure in detail: Right Gap-Balanced Nubia Persona Medial-Congruent Primary Total Knee Arthroplasty Implants: * Size 9 Narrow Cruciate Retaining Femoral Component * Size E OsseoTi Tibial Component * Size 12 Medial Congruent Polyethylene Insert * Unresurfaced Patella Procedure Summary: This 48-year-old female patient had a BMI over 45 and varus knee arthritis. Given her young age and high BMI desired biologic fixation and therefore utilized uncemented components during today's procedure including a tibial component with a central keel and peripheral spikes. She did require a posterior medial release for balanced in extension and the femoral rotation was set at 6?. 0 use supplementary antibiotics postoperatively and an incisional wound VAC given her high BMI. Procedure in Detail: This patient was seen preoperatively and evaluated for knee pain which was refractory to numerous nonoperative treatment modalities. Their pain correlated with radiographic changes demonstrating significant degeneration in the knee joint. The risks and benefits of continued nonoperative management versus operative management were discussed at length and all of the patient?s questions were answered. Additional educational materials providing further details beyond our discussion in clinic were provided via a publicly available patient education video which included the incidence of medical complications associated with total knee arthroplasty, reasons for revision following total knee arthroplasty, and patient satisfaction rates following total knee arthroplasty. That video can be accessed at [email or web address] . With this understanding of the risks inherent to the procedure, the patient elected to move forward with operative management. Following preoperative optimization, the patient was scheduled for surgery. The patient was met in the preoperative holding area the day of the procedure and all questions were answered. The patient?s nares were swabbed with betadine in order to decolonize them from MRSA. Informed consent was signed and the right limb was marked with indelible i nk.? The patient was brought back to the operating room where anesthesia was induced. The patient was transferred to the operating table and all bony prominences were padded. The operative site was prepped and draped in the usual sterile fashion. A second prep stick was utilized following drape placement. The incision was marked corresponding to the medial aspect of the tibial tubercle and the p atella. Ioban was wrapped circumferentially around the knee. Prior to incision, tranexamic acid and cefazolin were administered. Templating images were displayed. A timeout procedure was performed verifying the patient?s identity, medical comorbidities, allergies, relevant medications, anesthesia type and the surgical plan. All present were in agreement. The assistance of a physician workforce development assistant was required for positioning, room setup, soft tissue retraction and wound closure. Without this assistance, the procedure would have been significantly more challenging and time consuming.?? The tourniquet was inflated prior to incision. I made an anterior incision over the knee, dissected through the subcutaneous tissues and identified the lateral border of the VMO. Medial and lateral soft tissue flaps were developed. A medial parapatellar arthrotomy was performed ensuring that adequate capsular tissue would remain for closure at the conclusion of the procedure. The hip was brought into extension and the medial soft tissues were released off the joint line of the tibia. Tissue overlying the distal anterior femur was released to allow for later assessment for anterior notching but left in place. A portion of the retropatellar fat pad was excised while protecting the patellar tendon. The patella was everted. The patella was not resurfaced. Osteophytes were excised and a lateral facetectomy was performed. The patella was released from its everted position.?? I flexed the knee to 90 degrees and placed retractors to allow access to the notch. An opening reamer was used to gain access to the femoral canal and an intramedullary jennifer was introduced into the canal. Diaphyseal fit was obtained in order to allow a distal femoral resection at 5 degrees relative to the anatomic axis, thereby aiming to achieve mechanical alignment of the eventual implant. A +2 resection was planned and assessed using an valery wing. I then made the cut using a sagittal saw. This provided additional access to the femoral notch. The ACL and PCL were excised. Retractors were placed on the lateral and medial tibia. I hyperflexed the knee while externally rotating it to sublux the tibia anteriorly. I placed a PCL retractor posteriorly and used this to provide additional anterior subluxation. The remainder of the PCL root was released. An intramedullary reamer was used in the ACL footprint to provide access to the tibial canal. An extramedullary guide was positioned to allow a resection perpendicular to the anatomic and mechanical axes of the tibia, thereby aiming to achieve mechanical alignment of the eventual implant. A +4 resection off the medial tibia was planned and the tibial cutting jig was pinned in place. I evaluated the cut depth, varus-valgus alignment and slope of the planned tibial resection and deemed them satisfactory. I cut the tibia with a sagittal saw while using retractors to protect the MCL, patellar tendon, and posterolateral structures.? The knee was repositioned in extension and the Fuzion soft tissue balancing gauge was introduced. This demonstrated that there was excess tightness medially. I therefore moved the knee into a position of hyperflexion and external rotation and performed a posterior medial release of the capsule off the back of the tibia. When returning to extension I found that symmetry was improved, with the medial side opening to 6 and a symmetric 6 on the lateral side indicating balanced between the 2 compartments. When 50 pounds of force was applied to the Fuzion device, the extension gap opened to 10 mm. I moved the knee into 90 degrees of flexion, and the Fuzion device was recalibrated by removing a 9 mm veena to allow assessment of the flexion gap. The Fuzion was placed perpendicular to the resected surface of the tibia and the resected surface of the distal femur. Fifty pounds of traction was applied to match the tension of the extension gap. This externally rotated the femur to 6 degrees. Pins were placed in the 10 mm holes. The measured resection guide was placed over the pins to allow sizing. Appropriate sizing was determined and a 4-in-1 block was placed. This was double checked using the Fuzion device to ensure that it would open to an equal distance as the extension gap when the same amount of force was applied. The Fuzion block was also used to assess flexion gap symmetry. An valery wing was used to ensure there would be no anterior notching. Retractors were placed to protect the soft tissues during resection. Captured cuts were performed with a sagittal saw for the anterior and posterior femur as well as the corresponding chamfers.? Trial components were placed and the construct was assessed. Range of motion was assessed by ensuring the knee could achieve full extension and assessing maximum passive knee flexion by elevating the femur and allowing the heel to passively fall towards the buttock. Gap symmetry was assessed by stressing the medial and lateral compartments in both extension and flexion. Laxity was assessed in both extension and flexion and the polyethylene trial was adjusted with shims as necessary. Patellar tracking was assessed with knee flexion. Once satisfied with the construct, I moved forward with implant insertion. Lug holes were drilled in the femur and the tibia was prepped ensuring appropriate sizing and rotation relative to the tibial tubercle.?? The bony ends were irrigated and cement was prepared. Portions of the anterior chamfer cut were utilized as cement restrictors in the femur and tibia where intramedullar rods had been utilized. Cement was placed on the entirety of the undersurface of both the tibial and femoral components. Cement was placed onto the dry tibia and pressurized into the cancellous bone. I impacted the tibial component into place. Cement was removed. The tibia was reduced underneath the femur and placed cement onto the dry surface of the resected femur. I placed the femoral component as well as the intended polyethylene trial. Cement was removed from around the femur. I brought the knee into extension and manually pressurized the construct by pushing on the heel while the cement dried. The knee was bathed in a dilute mixture of betadine and peroxide. A mixture of Ropivacaine, Epinephrine, Clonidine and Toradol was infiltrated throughout the soft tissues into structures including the VMO, patellar tendon, quadriceps tend on, MCL and femoral periosteum. A low adductor canal block was also performed using this mixture unless one had been placed preoperatively by anesthesia. The knee was copiously irrigated with pulse lavage. Once cement had been allowed to dry the knee was again trialed. Range of motion was assessed by ensuring the knee could achieve full extension and assessing maximum passive knee flexion by elevating the femur and allowing the heel to passively fall towards the buttock. Gap symmetry was assessed by stressing the medial and lateral compartments in both extension and flexion. Laxity was assessed in both extension and flexion and the polyethylene trial was adjusted with shims as necessary. Patellar tracking was assessed with knee flexion. The tourniquet was let down and the polyethylene trial was removed. I inspected the knee inspected for excess cement and any residual bleeding. Once hemostasis was achieved I inserted the final polyethylene and ensured appropriate engagement of the dovetail locking mechanism.?? The arthrotomy was closed with absorbable interrupted suture ensuring that this extended to the top of the arthrotomy. This was backed up with running barbed suture throughout the arthrotomy. The skin was closed with 2-0 and 3-0 sutures. Surgical glue was applied and a soft dressing was placed.?The sponge, instrument and needle counts were reported as being correct at the end of the case.??No obvious complications occurred. The patient was transferred from the operating table back to a stretcher. The patient emerged from anesthesia without difficulty and was taken to the PACU in a stable condition.? Plan for aftercare: * Weightbearing as tolerated * Mobilization as soon as the patient has recovered from anesthesia. If physical therapists are unavailable at the time the patient is ready to ambulate, then nursing staff should help patient ambulate * Aspirin 81 twice per day for DVT prophylaxis * Adrian incisional wound VAC * Respiratory therapy given diagnosis of asthma while in the hospital * Postoperative prophylactic antibiotics for periprosthetic joint infection prophylaxis * Multimodal pain regimen with no IV opioids ordered * Anticipate discharge home later today * Follow up at [facility] in 2 weeks * Detailed postoperative instructions available at [email or web address]
[2024-06-15] MEDS: IBUPROFEN 600 MG TABLET PO ×2 (14:16→19:52)
[2024-06-15] MEDS: LACTATED RINGERS 1,000 ML 100 ML IV (14:16)
--- NOTE | 2024-06-15 15:30 | PT.IIE ---
Current Diagnoses Unilateral primary osteoarthritis, right knee (06/15/24) Surgery Performed Operation Date: 06/15/24 10:45 Actual Procedures p Total Knee Arthroplasty(Right) - Rylan Pittman MD Surgical History (Last Reviewed 06/15/24 @ 09:41 by Danielle Godoy, JEAN-CLAUDE) History of colonoscopy (09/13/22) History of hysterectomy (01/2023) History of removal of cyst (2015) Hx of left breast biopsy (2009) Medical History (Last Updated 06/05/24 @ 10:12 by Alla Watts RN) Abscess or cellulitis of thigh Asthma COVID-19 (03/2022) Easy bruisability GERD (gastroesophageal reflux disease) Hearing loss Left genital labial abscess Physical Therapy Inpatient Evaluation/Re-Eval M1 PT/OT-IP Prior Functional Status Start: 06/15/24 16:22 Freq: NEEDED Status: Active Protocol: Document 06/15/24 15:30 AB (Rec: 06/15/24 16:38 AB [id number]) Medical Review Prior Functional Status Medical History Reviewed Yes Communication able to make needs known Mobility and Gait pt stated that she was modified independent with all mobilities and ambulation without AD but occasionally uses a SPC Social History Household Members spouse,family Living Arrangements House Number of Floors (Floors) Two Floors Number of Stairs To Enter/Railing? 2 steps without rails to enter the house and also to get to the bathroom 2nd level bedroom: 8 steps L rail ascending +8 steps R rail ascending : pt plans to stay on first level of the house for a few weeks Home Environment High Toilet,Walk in Shower, Built-In Shower Seat Home Equipment Front Wheel Walker,Straight Cane,Hand Held Shower M2 PT-IP Current Condition Start: 06/15/24 16:22 Freq: NEEDED Status: Active Protocol: Document 06/15/24 15:30 AB (Rec: 06/15/24 16:38 AB [id number]) Physical Therapy Current Condition Current Condition Evaluation Date 06/15/24 Treatment Diagnosis s/p R TKA; difficulty in walking Onset Date 06/15/24 M3 PT-IP Subjective Start: 06/15/24 16:22 Freq: NEEDED Status: Active Protocol: Document 06/15/24 15:30 AB (Rec: 06/15/24 16:38 AB [id number]) Subjective Physical Therapy Visit Type Type Initial Evaluation Visit Start Time 15:30 Visit Stop Time 16:20 Number of SALES REPRESENTATIVE RAW FIBERS Visits 0 Physical Therapy Visit Comments Patient Comments agreeable to do PT Therapy Pain Assessment Pain When Pain Assessed During Mobility Pain Present Pain Present Pain Reported Location Right Knee Intensity 8 Scale Used Numeric (0 - 10) Pain Behaviors Crying,Facial Grimacing, Guarding,Holding Area,Wincing Pain Management Techniques Apply Cold,Distraction, Modification of Treatment,Re- positioning,Timing of Activity with Medications M4 PT-IP Mobility and Gait Start: 06/15/24 16:22 Freq: NEEDED Status: Active Protocol: Document 06/15/24 15:30 AB (Rec: 06/15/24 16:38 AB [id number]) PT-Bed Mobility Assessment Supine to Sit Supine to Sit Minimal Assistance,Bedrails PT-Transfer Assessment Sit to and From Stand Sit to and from Stand Moderate Assistance,2 Person Assistance,Use of Upper Extremities Equipment Transfer Assistive Device Gait Belt,Front Wheeled Walker Orthotic/Prosthetic Devices or Brace: No Transfers Transfer Destination Chair Transfer Technique Stand Step Pivot Transfer Ability Level of Assist Moderate Assistance,Maximum Assistance,2 Person Assistance ,Use of Upper Extremities Comments Mobility Comments pt supine in bed and agreeable to do PT. spouse in room with pt. obtained PLOF and home setup. post-op folder provided and reviewed contents. HEP reviewed. BP ins upine: 123/50 O2 sat at RA 98%. heel slides completed prior to getting up. pt completed supine to sit min A and cues. pt used bed rail to assist. pt was able to sit on EOB SBA. completed sit to stand mod x 2 to max A x 2 and max cues. c/o increase R knee pain. agreed to sit up on the chair. pt able to take a few steps to transfer to the chair using FWW mod A x 2 to max A x 2 and max cues. required assist to prvent R knee from buckling. pt sat on the chair and positioned. call light and table placed within reach. nurse aware of pt's increase R knee pain and gave pt pain meds. caregiver training set up for tomorrow at ~ 930 am Gait Assessment Comments Gait Comments steps during transfer using fWW PT-Balance Assessment Sitting Balance and Reactions Static Sitting Balance Ability Good Dynamic Sitting Balance Ability Good Standing Balance and Reactions Static Standing Balance Ability Poor Dynamic Standing Balance Ability Poor Device Used FWW M5 PT-IP Objective Assessments Start: 06/15/24 16:22 Freq: NEEDED Status: Active Protocol: Document 06/15/24 15:30 AB (Rec: 06/15/24 16:38 AB [id number]) Orientation Orientation/Cognition Level of Alertness Alert Orientation Name,Place,Situation Language Function Ability No Deficits Noted Safety Awareness Understands Safety Issues Memory Description No Deficits Noted Gross Range of Motion Lower Extremity ROM Assessment Right Impaired Impairments R knee flexion: ~ 40 deg R knee extension: ~ 20 deg less to 0 Strength Lower Extremity Strength Assessment Right Impaired Hip 3+/5 Knee 3-/5 Coordination Assessment Gross Coordination Gross Coordination WNL Sensation Assessment Sensation Sensation Description Numbness Comments Sensation Comments c/o slight numbness on RLE Muscle Tone Muscle Tone WNL Yes M6 PT-IP Treatment Start: 06/15/24 16:22 Freq: NEEDED Status: Active Protocol: Document 06/15/24 15:30 AB (Rec: 06/15/24 16:38 AB [id number]) Physical Therapy Treatment Exercises Exercises Heel Slides Education Education Provided Precautions,Weight Bearing Status,Post-Op Packet,Safety M7 PT-IP Assessment and Plan Start: 06/15/24 16:22 Freq: NEEDED Status: Active Protocol: Document 06/15/24 15:30 AB (Rec: 06/15/24 16:38 AB [id number]) PT Summary Assessment and Plan Potential Rehabilitation Potential Fair Status of Condition at Evaluation Evolving Summary Impairments Pain,ROM,Strength,Balance, Coordination,Sensation,Tone, Cognition,Bed Mobility, Transfers,Gait,Activity Tolerance Assessment Summary pt is a 48 y/o F s/p R TKA POD 0. pt is WBAT on RLE. pt requiring mod A x 2 to max A x 2 for transfer using FWW and only able to take a few steps to transfer. pt with c/o increase R knee pain affecting current level of mobility. pt plans to go home and spouse to assist her. caregiver training set up for tomorrow at ~ 930 am. will continue to assess. Goals Bed Mobility Goal Independent Transfer Goal Independent,Front Wheeled Walker Gait Goal Independent,Front Wheel Walker Gait Distance 150 Other Goals up/down 2 steps using SPC + MOTHER TESTER CGA up/down 8 steps L rail + 8 steps R rail SBA Days to Meet Goals 5 Frequency of Treatment Frequency Of Treatment Twice a Day Treatment Plan Physical Therapy Treatment Plan Bed Mobility Training,Transfer Training,Gait Training, Therapeutic Exercise,Balance Retraining,Post Op Education, Discharge Planning,Hot or Cold Pack,Neuromuscular Re-ed, Coordination Retraining,Manual Therapy Weight Bearing Status Weight Bearing Status Weight Bear as Tolerated Allowed Weight Bearing Amount (enter % RLE WBAT or #) (%) Recommendations To Nursing Amount of Assist Needed 2 Person Assist Discharge Recommendations PT Discharge Recommendations Home with 14/02 Assist Available,Home Health, Outpatient PT Transportation Needs at Discharge Private Vehicle
--- NOTE | 2024-06-15 15:45 | PC.ADMIT ---
[email or web address] Admission Note: 1340 - Patient admitted from PACU via stretcher. Slide board used to transfer patient to new bed. Vitals stable, room air, alert and awake. Patient reports numbness in feet and right leg, barely able to move toes due to spinal block. No pain, nausea, SOB. Lactacted Ringer's hooked up to left wrist IV, clamped and not infusing. IV site secured with arterial line board upon arrival. Patient states undocumented IV site in right upper arm painful, visual inspection showed white, milky medication throughout J-Loop and cannula. IV removed, surrounding tissue normal, continuing to monitor. Ice pack applied to knee, medications administered per EMAR. Patient to work with PT this afternoon/evening to determine if patient will be discharging home or staying the night. Feeling and movement slowly returning to lower extremities throughout shift. The patient,Vandana Mckee,48 y/o, was given written information regarding hospital policies, unit procedures and contact persons. Patient's smoking status: Former smoker. Vital Signs - 8 hr 06/15/24 09:45 06/15/24 13:09 06/15/24 13:14 Temperature 98.1 F 97 F L Pulse Rate 98 H 89 88 Respiratory Rate 16 13 11 L Blood Pressure 129/64 127/64 105/50 L Pulse Oximetry 98 100 100 Oxygen Delivery Method Room Air Room Air Room Air Oxygen Flow Rate 06/15/24 13:19 06/15/24 13:45 Temperature 96.6 F L Pulse Rate 87 90 Respiratory Rate 15 12 Blood Pressure 116/65 122/49 L Pulse Oximetry 100 100 Oxygen Delivery Method Room Air Oxygen Flow Rate 0
[2024-06-15] MEDS: OXYCODONE IR 5 MG TABLET PO ×3 (16:15→20:30)
--- NOTE | 2024-06-15 16:32 | PM.PN.1 ---
Subjective Subjective Interval history: I checked on Vandana and found her resting comfortably in a chair. She ambulate a few feet with physical therapy and is planning to stay the night and mobilized tomorrow morning anticipating discharge tomorrow. Her pain is well-controlled and she has intact sensory motor function distally in her foot. Her dressing is clean and dry. 1. Postoperative films have not been completed yet so those will need to be done at bedside in her hospital room 2. A hospital ice machine should be brought to the bedside to provide postoperative cryotherapy at her surgical site 3. Adrian incisional dressing in place to remain until postoperative follow up. I instructed her on how to use this 4. Prophylactic ciprofloxacin for PJI prophylaxis 5. Aspirin 81 mg twice per day for VTE prophylaxis Exam Vital Signs (past 8 hours): - 06/15/24 09:45 06/15/24 13:09 06/15/24 13:14 Temperature 98.1 F 97 F L Pulse Rate 98 H 89 88 Respiratory Rate 16 13 11 L Blood Pressure 129/64 127/64 105/50 L Pulse Oximetry 98 100 100 Oxygen Delivery Method Room Air Room Air Room Air Oxygen Flow Rate 06/15/24 13:19 06/15/24 13:45 Temperature 96.6 F L Pulse Rate 87 90 Respiratory Rate 15 12 Blood Pressure 116/65 122/49 L Pulse Oximetry 100 100 Oxygen Delivery Method Room Air Oxygen Flow Rate 0 Oxygen Delivery Method Room Air Oxygen Flow Rate 0 PFSH Medical History (Updated 06/05/24 @ 10:12 by Alla Watts RN) Easy bruisability Hearing loss Asthma GERD (gastroesophageal reflux disease) COVID-19 (03/2022) Abscess or cellulitis of thigh Left genital labial abscess Surgical History History of hysterectomy (01/2023) History of removal of cyst (2015) Hx of left breast biopsy (2009) History of colonoscopy (09/13/22) Social History household members: spouse and family Smoking Status: Former smoker alcohol intake: current Assessment & Plan Time-Based Coding :: [TOTAL MINUTES] spent with patient and on the chart (including review of chart, obtaining history, exam, reviewing outside data, placing orders, documenting exam and treatment plan, and counseling patient) on [DATE].
--- NOTE | 2024-06-15 17:17 | PC.NURSE ---
Addendum entered by Luigi Ugarte R.N. 06/15/24 18:11: Coordinator Ishaan contacted about acquiring an ice machine. Ishaan found part of an ice machine by the trauma menon elevator, missing the tubing and wrap that goes onto the patient. Coordinator to continue searching for the remaining part. Original Note: 9730 - Patient reported 8/10 pain after ambulating to chair. Administered Oxy 5 per EMAR and applied ice packs to knee. Patient reported 9/10 pain during pain reassessment. Contacted Dr Pittman for additional medicine for breakthrough pain control. Dr Pittman stated the patient did not need more medicine, she needs her ice machine. Explained to Dr Pittman that ice machines were not readily available to this unit and the patient required something for breakthrough pain control, Dr Pittman stated, you can give an additional Oxy 5 now if you want. Telephone order for a one time dose of 5mg Oxycodone.
[2024-06-15] MEDS: ACETAMINOPHEN 325 MG TABLET 650 MG PO (19:54)
[2024-06-15] MEDS: ASPIRIN EC 81 MG TABLET PO (20:54)
[2024-06-15] MEDS: DOCUSATE 100 MG CAPSULE PO (20:55)
[2024-06-15] MEDS: PANTOPRAZOLE DR 20 MG TABLET 40 MG PO (20:55)
[2024-06-16] VITALS: BP 99/44; PULSE 82; RESP 18; TEMP 36.4; O2SAT 93
--- NOTE | 2024-06-16 | DI.CT.S_ITS ---
PROCEDURE: CT KNEE RIGHT WITHOUT CON INDICATIONS: S/P Surgery TECHNIQUE: Noncontrast 1-1.5 mm axial sections acquired from the mid-patella to the proximal tibia, with coronal and sagittal reformats. COMPARISON: [facility], CR, XR KNEE RT 1TO2V, 06/16/2024, 14:23. FINDINGS: Image quality: Diagnostic. There are postsurgical changes of right total knee arthroplasty. Surgical hardware material appears to be in appropriate position. No acute fracture seen. Postoperative alignment appears anatomic. No suspicious osseous lesions. There is overlying soft tissue edema and subcutaneous soft tissue gas as well as gas within the deeper compartments of the right lower leg and distal thigh. Anterior vertical incision is noted near the midline lower extremity. Overlying soft tissue thickening of the anterior right lower leg. No evidence to suggest organized fluid collection. However, lack of intravenous contrast limits evaluation. Small amount of joint effusion and air likely from recent surgery. IMPRESSION: Status post recent right total knee arthroplasty without evidence for gross hardware complication. No acute fracture seen. Expected soft tissue changes surrounding the right knee. Lack of intravenous contrast limits evaluation. Dictated by: Yair Horowitz M.D. on 06/16/2024 at 20:18 Approved by: Yair Horowitz M.D. on 06/16/2024 at 20:28
[2024-06-16] MEDS: ACETAMINOPHEN 325 MG TABLET 650 MG PO ×4 (01:35→19:22)
[2024-06-16] MEDS: IBUPROFEN 600 MG TABLET PO ×4 (01:35→19:22)
[2024-06-16] MEDS: CEFAZOLIN VIAL 3 GM in SODIUM CHLORIDE 0.9% 100 ML IV (03:20)
[2024-06-16 04:00] VITALS: BP 107/53; PULSE 81; RESP 18; TEMP 36.2; O2SAT 94
[2024-06-16] MEDS: OXYCODONE IR 5 MG TABLET PO ×6 (04:04→21:30)
--- NOTE | 2024-06-16 04:45 | PC.NURSE ---
pt up to bs w/ 2 person asst; pt sobbing loudly with weight bearing or any movement to right leg; able to void and return to bed; ice machine in use; pt was medicated prior to getting up; in bed crying and unable to be comforted by staff or ; lights turned down; instructed to call if she maintains current level of discomfort and distress; pt calmed within a few minutes
[2024-06-16 04:56] LABS: Hematocrit 32.4 % (36-46); Hemoglobin 10.7 g/dL (12.0-16.0)
[2024-06-16 08:00] VITALS: BP 129/53; PULSE 77; RESP 15; TEMP 36.1; O2SAT 98
[2024-06-16] MEDS: DOCUSATE 100 MG CAPSULE PO ×2 (08:09→20:04)
[2024-06-16] MEDS: ASPIRIN EC 81 MG TABLET PO ×2 (08:10→20:04)
--- NOTE | 2024-06-16 09:30 | PT.IPTN ---
Current Diagnoses Unilateral primary osteoarthritis, right knee (06/15/24) Presence of unspecified artificial knee joint (06/15/24) Surgery Performed Operation Date: 06/15/24 10:45 Actual Procedures p Total Knee Arthroplasty(Right) - Rylan Pittman MD Physical Therapy Treatment Note M2 PT-IP Current Condition Start: 06/15/24 16:22 Freq: NEEDED Status: Active Protocol: Document 06/15/24 15:30 AB (Rec: 06/15/24 16:38 AB [id number]) Physical Therapy Current Condition Current Condition Evaluation Date 06/15/24 Treatment Diagnosis s/p R TKA; difficulty in walking Onset Date 06/15/24 M3 PT-IP Subjective Start: 06/15/24 16:22 Freq: NEEDED Status: Active Protocol: Document 06/16/24 09:30 AB (Rec: 06/16/24 10:36 AB [id number]) Subjective Physical Therapy Visit Type Type Treatment Note Visit Start Time 09:30 Visit Stop Time 10:15 Number of DIE CUTTER APPRENTICE Visits 0 Physical Therapy Visit Comments Patient Comments agreeable to do PT Therapy Pain Assessment Pain When Pain Assessed At Rest Pain Present Pain Present Pain Reported Location Right Knee Intensity 7 Scale Used increases with movement Pain Management Techniques Apply Cold,Distraction, Modification of Treatment,Re- positioning,Timing of Activity with Medications M4 PT-IP Mobility and Gait Start: 06/15/24 16:22 Freq: NEEDED Status: Active Protocol: Document 06/16/24 09:30 AB (Rec: 06/16/24 10:36 AB [id number]) PT-Bed Mobility Assessment Supine to Sit Supine to Sit Maximum Assistance Sit to Supine Sit to Supine Maximum Assistance PT-Transfer Assessment Sit to and From Stand Sit to and from Stand Moderate Assistance,Maximum Assistance,1 Person Assistance ,Use of Upper Extremities Equipment Transfer Assistive Device Gait Belt,Front Wheeled Walker Orthotic/Prosthetic Devices or Brace: No Transfers Transfer Destination Bed,Chair Transfer Technique Stand Step Pivot Transfer Ability Level of Assist Moderate Assistance,Maximum Assistance,1 Person Assistance ,Use of Upper Extremities Comments Mobility Comments pt up on bedside commode. pt c/o increase R knee pain. completed sit to stand from bedside commode max A and max cues. nurse assisted pt with hygiene care. pt step transfer to EOB max A and cues . pt tends not to use and put weight on RLE. pt with increase RLE guarding and tends to keep LLE in extension . c/o dizziness. BP checked: 130/80. pt stated that she has a hard time last night with bed mobility and wants to do bed mobility training. pt completed sit to supine max A and max cues. educated spouse on how to assist pt with bed mobility. pt rested. completed seated heel slides needing max A for move RLE. ROM limited with increase guarding at end range: ~ 30 deg. increases to ~ 40 deg after heel slides. pt agreed to get up. completed supine to sit max A and max cues. pt used bed rail to assist. educated spouse on how to assist pt. educated spouse how to use safety belt and how to assist pt. spouse was able to put safety belt on. assisted pt with sit to stand. educated pt on importance of using RLE. pt completed step transfer to chair using FWW mod to max A with spouse assisting. cued for R knee stability and quads activation. pt refused further activities. pt sat on the chair and positioned. call light and table placed within reach. M5 PT-IP Objective Assessments Start: 06/15/24 16:22 Freq: NEEDED Status: Active Protocol: Document 06/15/24 15:30 AB (Rec: 06/15/24 16:38 AB [id number]) Orientation Orientation/Cognition Level of Alertness Alert Orientation Name,Place,Situation Language Function Ability No Deficits Noted Safety Awareness Understands Safety Issues Memory Description No Deficits Noted Gross Range of Motion Lower Extremity ROM Assessment Right Impaired Impairments R knee flexion: ~ 40 deg R knee extension: ~ 20 deg less to 0 Strength Lower Extremity Strength Assessment Right Impaired Hip 3+/5 Knee 3-/5 Coordination Assessment Gross Coordination Gross Coordination WNL Sensation Assessment Sensation Sensation Description Numbness Comments Sensation Comments c/o slight numbness on RLE Muscle Tone Muscle Tone WNL Yes M6 PT-IP Treatment Start: 06/15/24 16:22 Freq: NEEDED Status: Active Protocol: Document 06/16/24 09:30 AB (Rec: 06/16/24 10:36 AB [id number]) Physical Therapy Treatment Exercises Exercises Heel Slides M7 PT-IP Assessment and Plan Start: 06/15/24 16:22 Freq: NEEDED Status: Active Protocol: Document 06/16/24 09:30 AB (Rec: 06/16/24 10:36 AB [id number]) PT Summary Assessment and Plan Potential Rehabilitation Potential Fair Summary Impairments Pain,ROM,Strength,Balance, Coordination,Sensation,Tone, Cognition,Bed Mobility, Transfers,Gait,Activity Tolerance Assessment Summary pt with c/o increase R knee pain and unable to tolerate much activity today. pt requiring mod to max A and max cues with bed mobility and transfers using FWW. pt refused to ambulate due to c/o increase R knee pain. will continue to assess. Goals Bed Mobility Goal Independent Transfer Goal Independent,Front Wheeled Walker Gait Goal Independent,Front Wheel Walker Gait Distance 150 Other Goals up/down 2 steps using SPC + FORGE HELPER CGA up/down 8 steps L rail + 8 steps R rail SBA Days to Meet Goals 10 Frequency of Treatment Frequency Of Treatment Twice a Day Treatment Plan Physical Therapy Treatment Plan Bed Mobility Training,Transfer Training,Gait Training, Therapeutic Exercise,Balance Retraining,Post Op Education, Discharge Planning,Hot or Cold Pack,Neuromuscular Re-ed, Coordination Retraining,Manual Therapy Weight Bearing Status Weight Bearing Status Weight Bear as Tolerated Allowed Weight Bearing Amount (enter % RLE WBAT or #) (%) Recommendations To Nursing Amount of Assist Needed 2 Person Assist Discharge Recommendations PT Discharge Recommendations Home with 14/02 Assist Available,Home Health Transportation Needs at Discharge Private Vehicle
--- NOTE | 2024-06-16 10:18 | PM.PNPO.1 ---
Subjective Subjective Date Patient Seen: 06/16/24 Time Patient Seen: 10:18 Interval history: Pt up to chair, tearful d/t poor pain control. Currently receiving APAP, IBPN, and oxycodone 5mg. Exam Vital Signs (past 8 hours): - 06/16/24 04:00 06/16/24 08:00 Temperature 97.1 F L 96.9 F L Pulse Rate 81 77 Respiratory Rate 18 15 Blood Pressure 107/53 L 129/53 L Pulse Oximetry 94 98 Oxygen Flow Rate 0 0 Oxygen Delivery Method Room Air Oxygen Flow Rate 0 Narrative Exam Narrative: 4/5 hip flexors, quadriceps, hamstrings, PF, DF, EHL on right. Sensation to light touch intact throughout RLE, calf soft and compressible. ABILIO over CAT is CDI. Objective Labs 06/16/24 04:00 Labs: Laboratory Results - last 24 hr 06/16/24 04:00 Hgb 10.7 L Hct 32.4 L PFSH Medical History (Updated 06/05/24 @ 10:12 by Alla Watts RN) Easy bruisability Hearing loss Asthma GERD (gastroesophageal reflux disease) COVID-19 (03/2022) Abscess or cellulitis of thigh Left genital labial abscess Surgical History (Updated 06/16/24 @ 10:19 by Anna Lyman PA-C) History of hysterectomy (01/2023) History of removal of cyst (2015) Hx of left breast biopsy (2009) History of colonoscopy (09/13/22) Social History household members: spouse and family Smoking Status: Former smoker alcohol intake: current Assessment & Plan Post-op Assessment and plan (1) Total knee replacement status: Assessment and Plan narrative: Added scheduled tramadol and cyclobenzaprine to current pain regimen. Slow progress w/ PT d/t poor pain control. Goals for today are better pain control, progress w/ PT, hopefully home tomorrow. ASA 81mg BID for VTE prophylaxis. Postoperative Procedures: Procedures Operation Date: 06/15/24 10:45 Actual Procedure Side Surgeon p Total Knee Arthroplasty Right Rylan Pittman MD Postoperative day: 1
[2024-06-16] MEDS: TRAMADOL 50 MG TABLET PO ×4 (10:34→20:04)
[2024-06-16] MEDS: CYCLOBENZAPRINE 10 MG TABLET PO ×2 (10:34→19:22)
--- NOTE | 2024-06-16 12:38 | PT.IPTN ---
Current Diagnoses Unilateral primary osteoarthritis, right knee (06/15/24) Presence of unspecified artificial knee joint (06/15/24) Surgery Performed Operation Date: 06/15/24 10:45 Actual Procedures p Total Knee Arthroplasty(Right) - Rylan Pittman MD Physical Therapy Treatment Note M2 PT-IP Current Condition Start: 06/15/24 16:22 Freq: NEEDED Status: Active Protocol: Document 06/15/24 15:30 AB (Rec: 06/15/24 16:38 AB [id number]) Physical Therapy Current Condition Current Condition Evaluation Date 06/15/24 Treatment Diagnosis s/p R TKA; difficulty in walking Onset Date 06/15/24 M3 PT-IP Subjective Start: 06/15/24 16:22 Freq: NEEDED Status: Active Protocol: Document 06/16/24 12:38 AB (Rec: 06/16/24 13:13 AB [id number]) Subjective Physical Therapy Visit Type Type Treatment Note Visit Start Time 12:38 Visit Stop Time 13:05 Number of OBSTETRICS/GYNECOLOGY NURSE Visits 0 Physical Therapy Visit Comments Patient Comments agreeable to do PT Therapy Pain Assessment Pain When Pain Assessed At Rest Pain Present Pain Present Pain Reported Location Right Knee Intensity 5 Scale Used increases to 7-8/10 with movement and weight bearing Pain Behaviors Crying,Facial Grimacing, Guarding Pain Management Techniques Apply Cold,Distraction, Modification of Treatment,Re- positioning,Timing of Activity with Medications M4 PT-IP Mobility and Gait Start: 06/15/24 16:22 Freq: NEEDED Status: Active Protocol: Document 06/16/24 12:38 AB (Rec: 06/16/24 13:13 AB [id number]) PT-Bed Mobility Assessment Sit to Supine Sit to Supine Maximum Assistance,1 Person Assistance PT-Transfer Assessment Sit to and From Stand Sit to and from Stand Moderate Assistance,Maximum Assistance,1 Person Assistance ,Use of Upper Extremities Equipment Transfer Assistive Device Gait Belt,Front Wheeled Walker Orthotic/Prosthetic Devices or Brace: No Transfers Transfer Destination Bed Transfer Technique ambulated Transfer Ability Level of Assist Moderate Assistance,Maximum Assistance,1 Person Assistance ,Use of Upper Extremities Comments Mobility Comments pt with spouse and was pt was transferring into the bedside commode with spouse assisting. pt agreed to do PT. spouse was able to assist pt with step transfer to the bedside commode using FWW. spouse assisted pt with sit to stand from the commode mod to max A and max cues and was able to assist pt with hygiene care. pt agreed to ambulate and ambulated ~ 5 ft using fWW with spouse assisting. c/o increase R knee pain during movement/ambulation. pt requested to go back to bed. completed sit to supine with spouse assisiting. occasional cues provided by PT. positioned pt on the bed. call light within reach. ice pack provided. informed pt and spouse to obtain a bedside commode and possibly a w/c due to pt's decrease activity tolerance and unable to ambulate much at this time. pt and spouse understood. Gait Assessment Gait Gait Assistance Required: Moderate Assistance,Maximum Assistance Distance (Feet) 5 Able to Maintain Weight Bearing Status Yes During Gait Assistive Devices Assistive Device Gait Belt,Front Wheeled Walker Orthotic/Prosthetic Devices or Brace: No Gait Deviations General Gait Pattern Antalgic,Decreased Stride Length,Decreased Feet Clearance,Step-to Gait Factors Limiting Gait Function Factors Limiting Gait Function Decreased Activity Tolerance, Decreased Strength,Limited Range of Motion,Pain,Poor Balance M5 PT-IP Objective Assessments Start: 06/15/24 16:22 Freq: NEEDED Status: Active Protocol: Document 06/15/24 15:30 AB (Rec: 06/15/24 16:38 AB [id number]) Orientation Orientation/Cognition Level of Alertness Alert Orientation Name,Place,Situation Language Function Ability No Deficits Noted Safety Awareness Understands Safety Issues Memory Description No Deficits Noted Gross Range of Motion Lower Extremity ROM Assessment Right Impaired Impairments R knee flexion: ~ 40 deg R knee extension: ~ 20 deg less to 0 Strength Lower Extremity Strength Assessment Right Impaired Hip 3+/5 Knee 3-/5 Coordination Assessment Gross Coordination Gross Coordination WNL Sensation Assessment Sensation Sensation Description Numbness Comments Sensation Comments c/o slight numbness on RLE Muscle Tone Muscle Tone WNL Yes M6 PT-IP Treatment Start: 06/15/24 16:22 Freq: NEEDED Status: Active Protocol: Document 06/16/24 12:38 AB (Rec: 06/16/24 13:13 AB [id number]) Physical Therapy Treatment Education Education Provided Safety M7 PT-IP Assessment and Plan Start: 06/15/24 16:22 Freq: NEEDED Status: Active Protocol: Document 06/16/24 12:38 AB (Rec: 06/16/24 13:13 AB [id number]) PT Summary Assessment and Plan Potential Rehabilitation Potential Fair Summary Impairments Pain,ROM,Strength,Balance, Coordination,Sensation,Tone, Cognition,Bed Mobility, Transfers,Gait,Activity Tolerance Progress Towards Goals Slow Progress due to Pain,Slow Progress due to Activity Tolerance Assessment Summary pt continues to c/o increase R knee pain affecting level of assistance and activity tolerance. Caregiver training was conducted this morning and spouse was able to assist pt with transfers, bed mobility this afternoon. pt was only able to tolerate ~ 5 ft of ambulation using fWW with spouse assisting. will continue to assess progress. Goals Bed Mobility Goal Independent Transfer Goal Independent,Front Wheeled Walker Gait Goal Independent,Front Wheel Walker Gait Distance 150 Other Goals up/down 2 steps using SPC + HOG KILLER CGA up/down 8 steps L rail + 8 steps R rail SBA Days to Meet Goals 10 Frequency of Treatment Frequency Of Treatment Twice a Day Treatment Plan Physical Therapy Treatment Plan Bed Mobility Training,Transfer Training,Gait Training, Therapeutic Exercise,Balance Retraining,Post Op Education, Discharge Planning,Hot or Cold Pack,Neuromuscular Re-ed, Coordination Retraining,Manual Therapy Weight Bearing Status Weight Bearing Status Weight Bear as Tolerated Allowed Weight Bearing Amount (enter % RLE WBAT or #) (%) Recommendations To Nursing Amount of Assist Needed 1 Person Assist Discharge Recommendations PT Discharge Recommendations Home with 14/02 Assist Available,Home Health Transportation Needs at Discharge Private Vehicle
--- NOTE | 2024-06-16 13:44 | DI.RAD.S_ITS ---
PROCEDURE: XR KNEE RT 1TO2V INDICATIONS: tka TECHNIQUE: 2 view(s) of the knee acquired. COMPARISON: None. FINDINGS: Bones: Patient is status post knee joint arthroplasty. Hardware components are in expected positions. Visualized bony structures are intact. Soft tissues: Overlying soft tissue edema and soft tissue gas compatible with recent surgical procedure. However, no skin tyrone visualized or soft tissue drain. IMPRESSION: Postoperative changes of right total knee arthroplasty in normal anatomic alignment. There is overlying soft tissue swelling and gas likely from recent surgical procedure. No skin tyrone visualized or soft tissue drain. Recommend verification of recent surgical procedure. Dictated by: Yair Horowitz M.D. on 06/16/2024 at 15:54 Approved by: Yair Horowitz M.D. on 06/16/2024 at 15:57
--- NOTE | 2024-06-16 13:55 | CM.DANOTE ---
DCP Assessment note Pt is a 48yo F here POD1 right knee surgery with Dr. Pittman PCP TANVIR [facility] Payer prime and self pay [employer] AGENT reviewed EMR. Per chart, [place] lives in [place] spouse and children. pt is mod indep at baseline, has a walker, cane, and shower seat at home. PT=rec home with assistance. per chart, pt in a lot of pain. PT rec maybe getting w/c and bedside commode. PA note anticipates home tomorrow. [employer] AGENT entered room and introduced self and role. Pt resting in bed and groggy during assessment. Reports spouse can assist her at home. Spouse working on getting w/c and bedside commode for pt. [employer] AGENT suggested [place] [facility]. pt appreciative. denies other CM needs at this time. anticipates returning home tomorrow, but very somnolent during DCP conversation. P: anticipate return home tomorrow with spouse support. CM team will continue to follow as needed KARISHMA Quiroz Discharge Planning/Care Management CM Discharge Assessment Start: 06/16/24 13:53 Freq: Status: Active Protocol: Document 06/16/24 13:53 SL (Rec: 06/16/24 13:54 [id number]) Discharge Planning Assessment Assigned Template Cutter KARISHMA Menard DPOA/Assigned Designee Name vincenzo Elliott Contact Information [phone] Advance Directives? No History Provided By Patient Prior Living Arrangements House Household Members spouse,family Type of transporation used prior to Drives own vehicle admit Independent with ADL's Yes Is patient alert and oriented? Yes DME Already Rented / Owned FWW / Walker Comment spouse working on getting w/c and bedside commode Discharge Plan Home Referrals Initiated None needed Review Status In Process Please Provide Date Initial DC 06/16/24 Assessment Was Performed Next Review Type Continued Stay Review Pre-Anesthesia Assessment Start: 06/05/24 09:36 Freq: Status: Active Protocol: Document 06/05/24 09:36 CAB (Rec: 06/05/24 10:25 CAB [id number]) Pre-Anesthesia Assessment PAC Comment Phone assessment completed with patient Patient Information Reviewed Via Phone Assessment Diagnostic Results BMP/CMP,CBC,EKG Comment Labs/EKG @ 03/15/24 Primary Care Provider Paula Desai Comment PCP clearance 03/15/24, visit scanned and in surgery folder Medical Clearance Received Yes Seen Specialist in Last 12 Months Yes Specialist Seen Barman,Orthopedist,Other Comment GI Primary Language Irish Shearing Machine Tender Required No Height 160.02 cm Weight 121.109 kg Body Mass Index (BMI) 47.2 Hearing Ability Hearing Impaired,Use of Hearing Aid Visual Assist Glasses Dentition Type Teeth, Natural Present Barriers to Learning None Hx Anesthesia Reactions No Hx Family Anesthesia Reaction No Hx Malignant Hyperthermia No Hx Blood Transfusions No Anesthesia Review Requested No Open Tenter Operator No alcohol intake current alcohol intake frequency holidays/special occasions only Smoking Status Former smoker how long ago did patient quit smoking 2010 Pain Present Pain Reported Musculoskeletal Symptoms Abnormal Gait,Joint Pain History of Falling (Recent or History of Yes ) Patient is completely paralyzed or No completely immobile Prosthesis or Orthotic Device Cane Mental Status Oriented to own ability Comment Cane use prn r/t knee pain, instability Is patient on oxygen? No Does patient have LAZARO/SOB No Hx Sleep Apnea No Currently Taking a Beta Yary No Can You Climb a Flight of Stairs Without Yes: r/t pain with knee SOB Hx Chest Pain No Hx SOB No Hx Syncope or Dizziness No Anti-Coagulant Therapy No Has a Barman Yes: [place] r/t phentermine use in 2023, no longer follows Cardiac Testing No Hx Pacemaker/ICD No Pacemaker Rep Required? No Cardiac Clearance Received Not Applicable Diet Type At Home Regular Dysphagia No Gastrointestinal Symptoms Reflux Urinary Catheter Present No Hx Urinary Self Catheterization No Diabetes No HgbA1C 4.9 Date 03/15/24 Patient No Lactating No Hx Drug Resistant Organism No Presence of External or Internal Medical Yes: Hearing aids Devices Received a COVID vaccine? Yes: 1st 2, no booster Comment No covid symptoms last 2 months Marital Status Lives With spouse,family Current Living Arrangements House Number of Floors (Floors) Two Floors Number of Stairs To Enter/Railing? 2 steps Support System Child/Children,Spouse Does the Patient Have Assistance After Yes Surgery Patient Discharge Plan Description Return Home Comment Pt advised same day surgery per surgeon Feels Safe in Current Environment Yes Been Physically Hurt or Threatened By a No Person in Current Environment Do you have thoughts of harming yourself None or others? Are you currently considering suicide? No Do you have a plan to hurt yourself or No Plan others? Do You Have Any Spiritual Beliefs That No May Affect Your HC Choices? Do You Have Any Cultural Practices That No May Affect Your HC Choices? Comment Spiritism Who Can We Speak to About Patient's Care Family, friends Identifying Code for Release of Patient Declines to issue Information Health Care Proxy/Next of Kin Earl () Health Care Proxy Emergency Contact Name [place] () Emergency Contact Advance Directives? No Power of Rig Site Engineer No PAC Instructions Assistance for 24 hours post- op,Do not shave/clip surgical site,Durable medical equipment ,Medications to take/avoid, Nasal antibiotic,No ETOH/ petroleum product on skin DOS, Post-op transportation,Pre- surgical wash,Sturdy shoes/ comfortable clothes,Do not bring valuables and remove jewelry
[2024-06-16 20:00] VITALS: BP 117/54; PULSE 95; RESP 18; TEMP 36.3; O2SAT 95
[2024-06-16] MEDS: PANTOPRAZOLE DR 20 MG TABLET 40 MG PO (20:04)
[2024-06-17] MEDS: ACETAMINOPHEN 325 MG TABLET 650 MG PO ×2 (01:16→08:41)
[2024-06-17] MEDS: OXYCODONE IR 5 MG TABLET PO ×3 (01:17→09:41)
[2024-06-17] MEDS: IBUPROFEN 600 MG TABLET PO ×2 (01:17→08:41)
[2024-06-17 08:00] VITALS: BP 122/42; PULSE 104; RESP 16; TEMP 36.2; O2SAT 96
--- NOTE | 2024-06-17 08:37 | P.DS_ITS ---
History of Present Illness History of Present Illness Date Patient Seen: 06/17/24 Time Patient Seen: 08:37 Chief complaint: OPB Narrative: Operative Date/Time/Diagnoses Date of procedure: 06/15/24 Pre-op diagnosis: Right knee osteoarthritis Post-op diagnosis: same Procedure & Clinicians Procedure: Right total knee arthroplasty Same procedure as scheduled: Yes Surgeon: Rylan Pittman Retirement Sales Consultant: Anna Lyman Anesthesia Type: Spinal, Sedation, Peripheral nerve block and Local Operative Notes Estimated Blood Loss (mL): 150 Procedure in detail: Right Gap-Balanced Nubia Persona Medial-Congruent Primary Total Knee Arthroplasty Implants: * Size 9 Narrow Cruciate Retaining Femoral Component * Size E OsseoTi Tibial Component * Size 12 Medial Congruent Polyethylene Insert * Unresurfaced Patella Discharge Providers Provider Discharge Date: 06/17/24 Primary care physician: Foster RAMEY Provider Consults: 06/15/24 06:00 Consult to Anesthesiology Routine Comment: Consulting Provider: Anesthesiologist Reason for consultation: Regional block for post operative pain control 06/15/24 13:47 Consult to Discharge Planning Routine Comment: Consult to Physical Therapy Evaluate & Treat Comment: Physician Instructions: postop TKA protocol Discharge provider: Anna Lyman PA-C Summary Hospital Course Discharge Diagnosis: Right knee osteoarthritis, s/p right total knee arthroplasty Hospital Course: Ms Mckee's hospital course was remarkable for poor pain control postoperatively. Changes were made on POD# 1. A CT of the RLE was ordered by Dr Pittman on the evening of POD# 1; this was unremarkable and results were discussed between the pt and Dr Pittman. On the morning of POD# 2, she was feeling more confident and had less pain. She wanted to work with PT at least one more time before deciding whether or not to go home. She was eating and voiding without difficulty. Exam Vital Signs (past 8 hours): Oxygen Delivery Method Room Air Oxygen Flow Rate 0 Narrative Exam Narrative: 4/5 strength in hip flexors, quadriceps; 3/5 hamstrings; 5/5 PF, DF, EHL on right. Sensation to light touch intact throughout RLE. Calf soft and compressible. Objective Labs 06/16/24 04:00 [facility] Medical History (Updated 06/05/24 @ 10:12 by Alla Watts RN) Easy bruisability Hearing loss Asthma GERD (gastroesophageal reflux disease) COVID-19 (03/2022) Abscess or cellulitis of thigh Left genital labial abscess Surgical History (Updated 06/16/24 @ 10:19 by Anna Lyman PA-C) History of hysterectomy (01/2023) History of removal of cyst (2015) Hx of left breast biopsy (2009) History of colonoscopy (09/13/22) Social History household members: spouse and family Smoking Status: Former smoker alcohol intake: current Discharge Assessment & Plan Assessment and Plan Assessment: Right knee osteoarthritis, s/p right total knee arthroplasty Plan of Treatment: Pt may discharge after PT today if she is feeling safe in her mobility. Multimodal pain control, outpt PT, ASA 81 mg BID for VTE prophylaxis, f/u in office as scheduled. Discharge Plan Discharge Plan Patient Disposition: Home Discharge orders & Medications Discharge Orders: Discharge (Order); Ordered 06/17/24 Ordered By: Anna Lyman Prescriptions: New tramadol 50 mg Tablet 50 mg PO QID PRN (Reason: pain (scale score 4-6)) Qty: 60 0RF cyclobenzaprine 10 mg Tablet 10 mg PO Q8HR PRN (Reason: Spasms) Qty: 30 0RF Rx Instructions: May decrease to 1/2 tab (5mg) as pain abates. Continued pantoprazole 20 mg Tablet,Delayed Release (Dr/Ec) 40 mg PO QPM albuterol sulfate 90 mcg/actuation Hfa Aerosol Inhaler 1 inh INHALATION QID PRN (Reason: Shortness Of Breath) fluticasone propionate [Flonase] 50 mcg/actuation Dawson,Suspension 2 spray INTRANASAL DAILY PRN (Reason: Seasonal allergies) Rx Instructions: administer into each nostril ibuprofen 200 mg Capsule 200 - 600 mg PO Q6H PRN (Reason: Pain) Follow up/Referrals: Provider,Foster RAMEY [Primary Care Provider] - Rylan Pittman MD [Physician] - 06/29/24 10:30 am (Follow up w/ LAURIE Rodriguez, at [facility] office in [place].) Diet/Activity/Treatments Diet: Diet as Tolerated Activity: Weightbearing as tolerated. Walk frequently! Cold/Heat Therapy: Ice to knee as needed for pain. Skin/Wound/Dressing Care Report to your healthcare provider any signs of infection, such as:: chills, fever, night sweats, unusual drainage and unusual redness Dressing: May remove ABILIO wrap and cotton padding and shower on 06/17/2024. Leave dressing in place until follow up in office. In 5-7 days, batteries will , at which point you can cut off the battery pack and dispose of it, but leave the dressing on. No bathing or otherwise soaking incision. Call the office if the dressing becomes saturated inside. Visit Report/Discharge Packet Instructions: DI for Knee Replacement, DI for Prescription Opioid Use Stand Alone Forms: Patient Portal/API, Surgery Discharge Discharge Data Primary Care Provider: Foster Pena Attending Provider: Rylan Pittman
[2024-06-17] MEDS: DOCUSATE 100 MG CAPSULE PO (08:42)
[2024-06-17] MEDS: CYCLOBENZAPRINE 10 MG TABLET PO (08:42)
[2024-06-17] MEDS: TRAMADOL 50 MG TABLET PO (08:42)
[2024-06-17] MEDS: ASPIRIN EC 81 MG TABLET PO (08:42)
[2024-06-17] MEDS: polyethylene glycoL 3350 17 GM POWD.PACK PO (08:50)
--- NOTE | 2024-06-17 10:26 | PT.IPTN ---
Current Diagnoses Unilateral primary osteoarthritis, right knee (06/15/24) Presence of unspecified artificial knee joint (06/15/24) Surgery Performed Operation Date: 06/15/24 10:45 Actual Procedures p Total Knee Arthroplasty(Right) - Rylan Pittman MD Physical Therapy Treatment Note M2 PT-IP Current Condition Start: 06/15/24 16:22 Freq: NEEDED Status: Active Protocol: Document 06/15/24 15:30 AB (Rec: 06/15/24 16:38 AB [id number]) Physical Therapy Current Condition Current Condition Evaluation Date 06/15/24 Treatment Diagnosis s/p R TKA; difficulty in walking Onset Date 06/15/24 M3 PT-IP Subjective Start: 06/15/24 16:22 Freq: NEEDED Status: Active Protocol: Document 06/17/24 09:00 MB (Rec: 06/17/24 09:44 MB [id number]) Subjective Physical Therapy Visit Type Type Treatment Note Visit Start Time 09:00 Visit Stop Time 09:30 Number of COLOR TESTER Visits 0 Physical Therapy Visit Comments Patient Comments Pt hook lying with nearby and is agreeable to PT. Therapy Pain Assessment Pain When Pain Assessed At Rest Pain Present Pain Present Pain Reported Location Right Knee Scale Used Not rated, cries with mobility M4 PT-IP Mobility and Gait Start: 06/15/24 16:22 Freq: NEEDED Status: Active Protocol: Document 06/17/24 09:00 MB (Rec: 06/17/24 09:44 MB [id number]) PT-Bed Mobility Assessment Supine to Sit Supine to Sit Contact Guard Assistance,1 Person Assistance,Head of Bed Elevated,Bedrails Scooting Scooting to Edge of Bed Contact Guard Assistance PT-Transfer Assessment Sit to and From Stand Sit to and from Stand Contact Guard Assistance,1 Person Assistance,Use of Upper Extremities Equipment Transfer Assistive Device Gait Belt,Front Wheeled Walker Orthotic/Prosthetic Devices or Brace: No Transfers Transfer Destination Chair Transfer Technique Ambulation Transfer Ability Level of Assist Contact Guard Assistance,1 Person Assistance,Use of Upper Extremities Comments Mobility Comments Pt responds better to gentle support of right leg to get to EOB and cries when asked to move her own leg using gait belt, which is able to do and then she throws the belt on the floor. Gait Assessment Gait Gait Assistance Required: Contact Guard Assist,1 Person Assist Distance (Feet) 10 Able to Maintain Weight Bearing Status Yes During Gait Assistive Devices Assistive Device Gait Belt,Front Wheeled Walker Orthotic/Prosthetic Devices or Brace: No Gait Deviations General Gait Pattern Antalgic,Decreased Stride Length,Decreased Feet Clearance,Step-to Gait Factors Limiting Gait Function Factors Limiting Gait Function Decreased Activity Tolerance, Decreased Strength,Limited Range of Motion,Pain,Poor Balance Comments Gait Comments Very slow stepping and requires encouragment to keep walker in front, nearby and supporting at gait belt, pt demonstrates backwards gait as well today Stair Climbing Assessment Comments Stair Climbing Comments Unable to perform platform step up with RW backwards despite demo and cues, pt cries with attempted lifting of left leg several times. states he can get pt into home another way without steps. PT-Balance Assessment Sitting Balance and Reactions Static Sitting Balance Ability Good Dynamic Sitting Balance Ability Good Standing Balance and Reactions Static Standing Balance Ability Good Dynamic Standing Balance Ability Fair Device Used RW M5 PT-IP Objective Assessments Start: 06/15/24 16:22 Freq: NEEDED Status: Active Protocol: Document 06/15/24 15:30 AB (Rec: 06/15/24 16:38 AB [id number]) Orientation Orientation/Cognition Level of Alertness Alert Orientation Name,Place,Situation Language Function Ability No Deficits Noted Safety Awareness Understands Safety Issues Memory Description No Deficits Noted Gross Range of Motion Lower Extremity ROM Assessment Right Impaired Impairments R knee flexion: ~ 40 deg R knee extension: ~ 20 deg less to 0 Strength Lower Extremity Strength Assessment Right Impaired Hip 3+/5 Knee 3-/5 Coordination Assessment Gross Coordination Gross Coordination WNL Sensation Assessment Sensation Sensation Description Numbness Comments Sensation Comments c/o slight numbness on RLE Muscle Tone Muscle Tone WNL Yes M6 PT-IP Treatment Start: 06/15/24 16:22 Freq: NEEDED Status: Active Protocol: Document 06/17/24 09:00 MB (Rec: 06/17/24 10:26 MB [id number]) Physical Therapy Treatment Exercises Exercises Ankle Pumps Education Education Provided Safety M7 PT-IP Assessment and Plan Start: 06/15/24 16:22 Freq: NEEDED Status: Active Protocol: Document 06/17/24 09:00 MB (Rec: 06/17/24 10:26 MB [id number]) PT Summary Assessment and Plan Potential Rehabilitation Potential Fair Status of Condition at Evaluation Evolving Summary Impairments Pain,ROM,Strength,Balance, Coordination,Bed Mobility, Transfers,Gait,Activity Tolerance Progress Towards Goals Slow Progress due to Pain Assessment Summary Vandana con't to c/o high pain and she is tearful throughout mobility. is nearby and he is very helpful and she responds best to his assistance with mobility. She cannot step up one platform step despite demo, assistance and cues. She cries harder with attempted lifting of left leg. states there is a way to get in the home without steps and he will assist her at d/c. Goals Bed Mobility Goal Independent Transfer Goal Independent,Front Wheeled Walker Gait Goal Independent,Front Wheel Walker Gait Distance 150 Other Goals up/down 2 steps using SPC + CREW MESS ATTENDANT CGA up/down 8 steps L rail + 8 steps R rail SBA Days to Meet Goals 10 Frequency of Treatment Frequency Of Treatment Once a Day Treatment Plan Physical Therapy Treatment Plan Bed Mobility Training,Transfer Training,Gait Training, Therapeutic Exercise,Balance Retraining,Post Op Education, Discharge Planning,Hot or Cold Pack,Neuromuscular Re-ed, Coordination Retraining,Manual Therapy Weight Bearing Status Weight Bearing Status Weight Bear as Tolerated Allowed Weight Bearing Amount (enter % RLE WBAT or #) (%) Recommendations To Nursing Amount of Assist Needed 1 Person Assist Discharge Recommendations PT Discharge Recommendations Home with 14/02 Assist Available,Home Health Transportation Needs at Discharge Private Vehicle
--- NOTE | 2024-06-17 12:18 | PC.NURSE ---
Discharge Note Patient A&O, VSS, RA, no complaints of pain/discomfort. Discharge packet reviewed with patient, all questions/concerns addressed. PIV discontinued, Patient able to dress self and pack all belongings. Patient taken down via wheelchair to POV.
--- NOTE | 2024-06-17 13:08 | CM.DPNOTE ---
DC Note Patient discharge home, therapies have cleared patient for home with outpatient PT. No needs identified from this CM team. ELISABETH
== END 2024-06-17 11:30 | disposition home or self-care (01) ==
LOC: OR 08:45 → AC 08:55
PROVIDERS: Referring Provider Orthopaedic Surgery Adult Reconstructive Orthopaedic Surgery; Visit Provider Orthopaedic Surgery Adult Reconstructive Orthopaedic Surgery
PROC: 0SRC0JZ Replacement of Right Knee Joint with Synthetic Substitute, Open Approach (ICD-10-PCS; CPT 27447; principal; 2024-06-15 10:45)
DX: M17.11 Unilateral primary osteoarthritis, right knee (principal); M21.161 Varus deformity, not elsewhere classified, right knee; E66.9 Obesity, unspecified; Z68.42 Body mass index [BMI] 45.0-49.9, adult; M25.761 Osteophyte, right knee
CPT/HCPCS: 27447; 36415; 73560; 73700; 85014; 85018; 97116; 97162; 97530; C1776; J0690; J2250; J2405; J2704

== ENCOUNTER → 2024-09-12 | Outpatient (CLI) | payer OTHER, SELFPAY ==
[2024-06-15 09:16] VITALS: BMI 46.3
--- NOTE | 2024-09-12 14:59 | DI.RAD.S_ITS ---
PROCEDURE: FL ARTHROGRAM HIP RT INDICATIONS: PAIN IN RT HIP TECHNIQUE: The indications, alternatives, benefits, risks, and complications of the procedure were explained to the patient. Written informed consent was obtained and placed in the chart. The hip was examined fluoroscopically with the legs fixed in slight internal rotation, and a site for needle placement chosen for entry into the hip joint from an anterior approach. Care was taken to locate the common femoral artery and vein beforehand. The skin was prepped and draped in a sterile fashion, and 1% Lidocaine infiltrated from skin down to joint capsule. A spinal needle was inserted into the joint, and a small amount of iodinated contrast media injected to confirm intra-articular placement of the needle tip. This was followed by approximately 10 mL dilute solution of a gadolinium containing MR contrast agent. The needle was removed and a dressing was applied. The patient was given postprocedural instructions and sent to the MR suite for imaging. COMPARISON: None. FINDINGS: A single fluoroscopic spot image demonstrates intra-articular location of injected iodinated contrast. IMPRESSION: Successful fluoroscopically guided administration of dilute Gadolinium solution into the hip joint for MR arthrogram. Dictated by: Jacky Joy M.D. on 09/13/2024 at 14:39 Approved by: Jacky Joy M.D. on 09/13/2024 at 14:40
[2024-09-12] MEDS: SODIUM CHLORIDE 0.9 % 20 ML VIAL IV (16:23)
[2024-09-12] MEDS: LIDOCAINE 1% 20 ML INJ (16:23)
== END ==
PROVIDERS: Referring Provider Orthopaedic Surgery Adult Reconstructive Orthopaedic Surgery; Visit Provider Orthopaedic Surgery Adult Reconstructive Orthopaedic Surgery
DX: M25.551 Pain in right hip (principal)
CPT/HCPCS: 27093; 73525; A9579; Q9967

== ENCOUNTER 2025-06-02 19:01 | Emergency (ER) | payer OTHER, SELFPAY ==
[2024-06-15 09:16] VITALS: BMI 46.3
[2025-06-02 19:16] VITALS: BP 169/76; PULSE 105; RESP 20; TEMP 36.9; O2SAT 96; BMI 50.6
[2025-06-02] MEDS: KETOROLAC 30 MG/ML VIAL 60 MG IM (19:36)
--- NOTE | 2025-06-02 20:40 | ED_ITS ---
HPI - Extremity Problem
--- NOTE | 2025-06-02 20:40 | ED.EXTPRO ---
HPI - Extremity Problem General Chief complaint: Extremity Problem,Nontraumatic Stated complaint: lt leg injury cant put weight on it Time Seen by Provider: 06/02/25 19:25 Source: patient Mode of arrival: Wheelchair History of Present Illness HPI Narrative: 49-year-old female starting with more left-sided radiating pain starting from her left buttock region that is progressively getting worse in the past week. She denies any saddle anesthesia or any bowel or bladder incontinence. Related Data Home Medications ?Medication ?Instructions ?Recorded ?Confirmed albuterol sulfate 90 mcg/actuation 1 inh inhalation QID PRN Shortness 06/05/24 06/15/24 aerosol inhaler Of Breath fluticasone propionate 50 2 spray intranasal DAILY PRN 06/05/24 06/15/24 mcg/actuation nasal Seasonal allergies spray,suspension ibuprofen 200 mg capsule 200 - 600 mg PO Q6H PRN Pain 06/05/24 06/15/24 pantoprazole 20 mg tablet,delayed 40 mg PO QPM 06/05/24 06/15/24 release Previous Rx's ?Medication ?Instructions ?Recorded cyclobenzaprine 10 mg tablet 10 mg PO Q8HR PRN Spasms #30 tabs 06/17/24 tramadol 50 mg tablet 50 mg PO QID PRN pain (scale score 06/17/24 4-6) #60 tabs Allergies Allergy/AdvReac Type Severity Reaction Status Date / Time cephalexin Allergy Severe Anaphylaxis Verified 09/11/24 09:02 erythromycin base (From Allergy Severe ANAPHYLAXIS Verified 09/11/24 09:02 ERYTHROCIN) Penicillins (PENICILLINS) Allergy Severe ANAPHYLAXIS Verified 09/11/24 09:02 Sulfa (Sulfonamide Allergy Severe ANAPHYLAXIS Verified 09/11/24 09:02 Antibiotics) (SULFA (SULFONAMIDE ANTIBIOTICS)) Review of Systems Review of Systems ROS Unobtainable: All systems reviewed & are unremarkable except as noted in HPI and below Patient History Medical History (Updated 06/02/25 @ 22:28 by Eran Reardon MD) Easy bruisability Hearing loss Asthma GERD (gastroesophageal reflux disease) COVID-19 (03/2022) Abscess or cellulitis of thigh Left genital labial abscess Surgical History (Updated 06/16/24 @ 10:19 by Anna Lyman PA-C) History of hysterectomy (01/2023) History of removal of cyst (2016) Hx of left breast biopsy (2009) History of colonoscopy (09/13/22) Social History household members: spouse and family Smoking Status: Former smoker alcohol intake: current Smoking Status: Former smoker alcohol intake frequency: holidays/special occasions only Exam Narrative Exam Narrative: General: Patient appears to be in no acute distress, acting appropriately Head: normocephalic, atraumatic, HEENT: Pupils equal round reactive, eyes tracking well, neck supple, no JVD Heart: regular rate and rhythm, no murmurs, rubs, or gallops heard Lungs: clear to auscultation, no adventitious sounds Abdomen: soft , nontender, nondistended, positive bowel sounds Neurological: no focal neurological signs, moving all extremities well, alert and oriented x3, Psych: good judgment ,good insight, mood is normal. Left buttock region painful with palpation in left piriformis muscle area Initial Vital Signs Initial Vital Signs: Vital Signs Temperature 98.5 F 06/02/25 19:16 Pulse Rate 105 H 06/02/25 19:16 Respiratory Rate 20 06/02/25 19:16 Blood Pressure 169/76 H 06/02/25 19:16 Pulse Oximetry 96 06/02/25 19:16 Oxygen Delivery Method Room Air 06/02/25 19:16 Course Orders Ordered: Discontinued Medications Hydrocodone Bitart/Acetaminophen (Hydrocodone/Acet 5/325 Prepack) 1 bottle MISC DIRECTED ONE Stop: 06/02/25 22:26 Last Admin: 06/02/25 22:47 Dose: 1 bottle Documented By: MIAH Ketorolac Tromethamine (Ketorolac 30 Mg/Ml Vial) 60 mg IM NOW ONE Stop: 06/02/25 19:33 Last Admin: 06/02/25 19:36 Dose: 60 mg Documented By: BARRETT Ondansetron HCl (Ondansetron 4 Mg Odt) 4 mg SL NOW ONE Stop: 06/02/25 21:05 Last Admin: 06/02/25 21:07 Dose: 4 mg Documented By: SH Ondansetron HCl (Ondansetron 4 Mg Odt Prepack) 1 bottle MISC DIRECTED ONE Stop: 06/02/25 22:26 Last Admin: 06/02/25 22:47 Dose: 1 bottle Documented By: MIAH Vital Signs Vital signs: Vital Signs - 8 hr 06/02/25 22:51 Pulse Rate 86 Respiratory Rate 16 Blood Pressure 131/61 Pulse Oximetry 96 Oxygen Delivery Method Room Air MDM - Extremity (Nontraumatic) MDM Narrative Medical decision making narrative: 49-year-old female who in the past week has been having more radiating pain down her left lower extremity starting in her left buttock region. Patient has most likely dealing with a piriformis syndrome. Her pain improved significantly with Toradol 60 mg IM. Patient given take-home pack of some pain meds to use as needed. Advised to try some low back exercises and follow up with PCP for physical therapy referral if needed. Discharge Plan Departure Patient Disposition: Home Clinical Impression: Piriformis syndrome of left side Instructions: Exercise May Reduce Risk of Low Back Pain, Piriformis Syndrome Activity Restrictions/Additional Instructions: Take medications as needed. Try the low back exercises for sciatica or piriformis syndrome. May need formal physical therapy. Follow up if pain is worsening or having bowel or bladder incontinence Prescriptions: No Action pantoprazole 20 mg Tablet,Delayed Release (Dr/Ec) 40 mg PO QPM albuterol sulfate 90 mcg/actuation Hfa Aerosol Inhaler 1 inh INHALATION QID PRN (Reason: Shortness Of Breath) fluticasone propionate 50 mcg/actuation [place],Suspension 2 spray INTRANASAL DAILY PRN (Reason: Seasonal allergies) Rx Instructions: administer into each nostril ibuprofen 200 mg Capsule 200 - 600 mg PO Q6H PRN (Reason: Pain) cyclobenzaprine 10 mg Tablet 10 mg PO Q8HR PRN (Reason: Spasms) Qty: 30 0RF Rx Instructions: May decrease to 1/2 tab (5mg) as pain abates. tramadol 50 mg Tablet 50 mg PO QID PRN (Reason: pain (scale score 4-6)) Qty: 60 0RF Referrals: [facility] [Primary Care Provider, Family Practice] Stand Alone Forms: Patient Portal/API
[2025-06-02] MEDS: ONDANSETRON 4 MG ODT SL (21:07)
[2025-06-02] MEDS: ONDANSETRON 4 MG ODT PREPACK 1 BOTTLE MISC (22:47)
[2025-06-02 22:51] VITALS: BP 131/61; PULSE 86; RESP 16; O2SAT 96
== END 2025-06-02 22:52 | disposition home or self-care (01) ==
PROVIDERS: Emergency Provider Family Medicine
DX: G57.02 Lesion of sciatic nerve, left lower limb (principal)
CPT/HCPCS: 96372; 99283; J1885